=== PATIENT | female | born 1965 | race Two or more races ===

== ENCOUNTER → 2022-11-30 | Outpatient (CLI) | payer MEDICAID ==
[~2022-11-30] MED LIST: ALBUTEROL SULF 2.5 MG/0.5ML(0.5%) NEB SOLN ONE
== END | disposition home or self-care (01) ==
LOC: RT 08:45
PROVIDERS: ATTEND Internal Medicine Pulmonary Disease
DX: R06.02 Shortness of breath (principal); R06.09 Other forms of dyspnea
CPT/HCPCS: 94060; 94727; 94729

== ENCOUNTER → 2023-04-28 | Day surgery (SDC) | payer MEDICAID ==
[2023-04-25 12:39] LABS: Basophils # (auto) 0 10 ^3/uL (0-0.2); Basophils % (auto) 0.5 % (0.0-2.0); Eosinophils # (auto) 0 10 ^3/uL (0-0.8); Eosinophils % (auto) 0.3 % (0.0-7.0); Hematocrit 41.2 % (36.0-46.0); Hemoglobin 14.1 g/dL (12.2-16.2); Lymphocytes # (auto) 2.2 10 ^3/uL (0.4-5.4); Lymphocytes % (auto) 32.4 % (10.0-50.0); Mean Corpuscular Hemoglobin 30.6 pg (28.0-32.0); Mean Corpuscular Hgb Conc. 34.3 g/dL (32.0-36.0); Mean Corpuscular Volume 89.3 fL (80.0-100.0); Monocytes # (auto) 0.5 10 ^3/uL (0-1.3); Monocytes % (auto) 7.9 % (0.0-12.0); Neutrophils % (auto) 58.9 % (37.0-80.0); Nucleated Red Blood Cells % 0.1 %; Red Blood Cells 4.61 10^6/uL (4.0-5.20); Red Cell Distribution Width 14.2 % (11.8-14.3); White Blood Cell 6.7 10^3/uL (4.4-10.8)
[2023-04-25 12:58] LABS: Partial Thromboplastin Time 27.5 SEC (24.5-34.5); Prothrombin Time 10.5 sec (9.3-11.8)
[2023-04-25 13:19] LABS: Alanine Aminotransferase 17 U/L (7-40); Albumin 4.3 g/dL (3.2-4.8); Alkaline Phosphatase 61 U/L (46-116); Anion Gap 6 (5-15); Aspartate Aminotransferase 15 U/L (13-40); BUN/Creatinine Ratio 10.8 (10.0-20.0); Bilirubin, Total 1.2 mg/dL (0.2-1.0); Blood Urea Nitrogen 10 mg/dL (9-23); Calcium 9.9 mg/dL (8.5-10.1); Carbon Dioxide 30 mmol/L (20-30); Chloride 102 mmol/L (98-107); Glucose 85 mg/dL (74-106); Potassium 3.7 mmol/L (3.5-5.1); Sodium 138 mmol/L (136-145)
[2023-04-25 13:23] LABS: Urine Bacteria FEW /hpf (None Seen); Urine Blood Negative /uL (Negative); Urine Clarity Clear (Clear); Urine Color Colorless (Yellow); Urine Protein, UAD Negative (Negative); Urine Specific Gravity 1.006 (1.001-1.035); Urine Urobilinogen Normal (Negative); Urine WBC <1 /hpf (0 - 5); Urine pH 7.5 (5.0-8.0)
[~2023-04-28] VITALS: Ht 162.6 cm; Wt 144.2 kg
[~2023-04-28] MED LIST changes: +ALBUAER3 IN; -ALBUTEROL SULF 2.5 MG/0.5ML(0.5%) NEB SOLN ONE; +BUSP15TA60 PO; +CHLO25TA2 PO; +FLUT1AER17 IN; +LIDOCAINE 2% (LOCAL ANESTH.) PF 5ml SDV ONE; +LORA-622 PO; +LOSA50TA46 PO; +PROPOFOL 10 MG/ML 20 ML IV ONE; +SODIUM CHLORIDE LOCK 10 ML ONE; +ePHEDrine SULFATE 50 MG/ML AMP ONE
[2023-04-28 13:08] VITALS: TEMP 98.7
[2023-04-28 14:38] VITALS: O2SAT 98
[2023-04-28 15:08] VITALS: BP 119/64; PULSE 85; RESP 21; O2SAT 96
== END | disposition home or self-care (01) ==
LOC: GI 12:19
PROVIDERS: ATTEND Internal Medicine Gastroenterology
DX: K59.00 Constipation, unspecified (principal); K57.30 Diverticulosis of large intestine without perforation or abscess without bleeding; K64.8 Other hemorrhoids; K62.1 Rectal polyp; K92.1 Melena; K63.5 Polyp of colon
CPT/HCPCS: 36415; 45385; 80053; 81001; 85025; 85610; 85730; 88305; J2001; J2704; J7030

== ENCOUNTER → 2023-05-30 | Outpatient (CLI) | payer MEDICAID ==
[~2023-05-30] MED LIST changes: -LIDOCAINE 2% (LOCAL ANESTH.) PF 5ml SDV ONE; -PROPOFOL 10 MG/ML 20 ML IV ONE; -SODIUM CHLORIDE LOCK 10 ML ONE; -ePHEDrine SULFATE 50 MG/ML AMP ONE
[2023-05-30 11:05] LABS: Alanine Aminotransferase 22 U/L (7-40); Albumin 4.3 g/dL (3.2-4.8); Alkaline Phosphatase 74 U/L (46-116); Anion Gap 6 (5-15); Aspartate Aminotransferase 17 U/L (13-40); BUN/Creatinine Ratio 12.5 (10.0-20.0); Bilirubin, Total 1.5 mg/dL (0.2-1.0); Blood Urea Nitrogen 12 mg/dL (9-23); Calcium 9.6 mg/dL (8.5-10.1); Carbon Dioxide 28 mmol/L (20-30); Chloride 105 mmol/L (98-107); Glucose 94 mg/dL (74-106); Potassium 4.3 mmol/L (3.5-5.1); Sodium 139 mmol/L (136-145); Total Protein 6.9 g/dL (5.7-8.2)
[2023-05-30 12:07] LABS: INR 0.97 (0.9-1.15); Prothrombin Time 10.4 sec (9.3-11.8)
== END | disposition home or self-care (01) ==
LOC: LAB 10:09
PROVIDERS: ATTEND Internal Medicine Gastroenterology
DX: R94.5 Abnormal results of liver function studies (principal)
CPT/HCPCS: 36415; 80053; 82728; 85610; 86038; 86803; 87340

== ENCOUNTER 2024-04-30 10:40 | Emergency (ER) | payer OTHER, MEDICAID ==
[~2024-04-30] VITALS: Ht 162.6 cm; Wt 157.0 kg
[~2024-04-30 10:40] MED LIST changes: +LOSA-534 PO; -LOSA50TA46 PO
[2024-04-30] MEDS ORDERED: DexAMETHasone SOD PHOS 10MG/1ML VIAL INJ IM ONE (11:15)
[2024-04-30] MEDS ORDERED: CYCL-839 PO (11:23)
--- NOTE | 2024-04-30 11:27 | ED.PDOC ---
Musculoskeletal HPI Comments 58-year-old female patient presents to the clinic for pain to the left upper leg that starts at the knee and radiates upwards. Patient reports that the pain is anterior and posterior. Patient denies any recent trauma or fall. Patient reports that she usually has this pain on the right leg and will go to urgent care for treatment. Patient is unsure what treatment she usually receives. Patient has received corticosteroid injections to the right knee previously which did help with only knee pain. Patient has an appointment upcoming with her PCP this week. Chief Complaint: Lower Extremity Time Seen by MD: 10:46 Primary Care Provider: wale Reviewed Notes: Nurses Notes, Medications Allergies: Coded Allergies: Penicillins (Unverified Allergy, Severe, anaphylaxis, 04/25/23) Sulfa Antibiotics (Unverified Adverse Reaction, Mild, anxiety, 04/25/23) Home Meds Active Scripts Prednisone (Prednisone) 20 Mg Tab, 60 MG PO DAILY for 5 Days, #15 TAB 0 Refills Prov:[facility] 04/30/24 Ibuprofen (Ibuprofen) 600 Mg Tab, 1 TAB PO TID PRN for 30 Days, #90 TAB Prov:[facility] 04/30/24 Cyclobenzaprine Hcl (Cyclobenzaprine Hcl) 10 Mg Tab, 10 MG PO BID PRN for 21 Days, #42 TAB 0 Refills Prov:[facility] 04/30/24 Reported Medications Lsrsroqtfgj-Rycebqtmnvfk-Ntevx (Trelegy Ellipta 200-62.5-25 Mcg/INH) 1 Aer Aer, 1 AER IN DAILY, AER 04/25/23 Chlorthalidone (Chlorthalidone) 25 Mg Tab, 25 MG PO DAILY, TAB 04/25/23 Loratadine (Claritin) 10 Mg Tab, 10 MG PO DAILY, TAB 04/25/23 Albuterol Sulfate (VENTOLIN MDI) 90 Mcg Ih, 90 MCG IN PRN, INH 04/25/23 Buspirone Hcl (Buspirone Hcl) 15 Mg Tab, 15 MG PO TID, TAB 04/25/23 Losartan Potassium (Losartan Potassium) 50 Mg Tab, 50 MG PO DAILY, TAB 04/25/23 Mode of Arrival: Ambulatory Family History Family History: Reviewed,noncontributory to illness Constitutional: denies: chills, diaphoresis, fatigue, fever, malaise, sweats, weakness, others EENTM: denies: blurred vision, double vision, ear bleeding, ear discharge, ear drainage, ear pain, ear ringing, eye pain, eye redness, hearing loss, mouth pain, mouth swelling, nasal discharge, nose bleeding, nose congestion, nose pain, photophobia, tearing, throat pain, throat swelling, voice changes, others Respiratory: denies: cough, hemoptysis, orthopnea, SOB at rest, shortness of breath, SOB with excertion, stridor, wheezing, others Cardiovascular: denies: chest pain, dizzy spells, diaphoresis, Dyspnea on exertion, edema, irregular heart beat, left arm pain, lightheadedness, palpitations, PND, syncope, others Gastrointestinal: denies: abdomen distended, abdominal pain, blood streaked bowels, constipated, diarrhea, dysphagia, difficulty swallowing, hematemesis, melena, nausea, poor appetite, poor fluid intake, rectal bleeding, rectal pain, vomiting, others Genitourinary: denies: abnormal vagina bleeding, burning, dyspareunia, dysuria, flank pain, frequency, hematuria, incontinence, pain, , vagina discharge, urgency, others Neurological: denies: dizziness, fainting, headache, left sided numbness, left sided weakness, numbness, paresthesia, pre-existing deficit, right sided numb ness, right sided weakness, seizure, speech problems, tingling, tremors, weakness, others Musculoskeletal: reports: others (Patient has tenderness to the left thigh on the anterior and posterior portion. Patient has mild pain a on the anterior portion.) Integumetry: denies: bruises, change in color, change in hair/nails, dryness, laceration, lesions, lumps, rash, wounds, others Allergic/Immunocompromised: denies: Difficulty Healing, Frequent Infections, Hives, Itching, others Hematologic/Lymphatic: denies: anemia, blood clots, easy bleeding, easy bruising, swollen glands, others Endocrine: denies: excessive hunger, excessive sweating, excessive thirst, excessive urination, flushing, intolerance to cold, intolerance to heat, unexplained weight gain, unexplained weight loss, others Psychiatric: denies: anxiety, bipolar disorder, depression, hopeless, panic dis order, schizophrenia, sleepless, suicidal, others All Other Systems: Reviewed and Negative Physical Exam General Appearance: No Apparent Distress, Normal HEENT: Normal ENT Inspection, Pharynx Normal, TMs Normal Neck: Full Range of Motion, Non-Tender, Normal, Normal Inspection Respiratory: Chest Non-Tender, Lungs Clear, No Accessory Muscle Use, No Respiratory Distress, Normal Breath Sounds Cardiovascular: No Edema, No JVD, No Murmur, No Gallop, Normal Peripheral Pulses, Regular Rate/Rhythm Breast Exam: Deferred Gastrointestinal: No Organomegaly, Non Tender, No Pulsatile Mass, Normal Bowel Sounds, Soft Genitalia: Deferred Pelvic: Deferred Rectal: Deferred Extremities: No calf tenderness, Normal capillary refill, Normal inspection, Normal range of motion, Non-tender, No pedal edema, Tender (Tenderness to the anterior and posterior portion of the left thigh. No swelling or inflammation noted. No ecchymosis. Patient has full range of motion and is ambulatory) Musculoskeletal : Apperance: Normal Neurologic: Alert, emerging solutions executive II-XII nml as Tested, No Motor Deficits, Normal Affect, Normal Mood, No Sensory Deficits Cerebellar Function: Normal Reflexes: Normal Skin: Dry, Normal Color, Warm Lymphatic: No Adenopathy Was a procedure done? Was a procedure done?: No Differential Diagnosis EXT Differential Diagnosis: Contusion, Strain, Arthritis, Other (Sciatica) X-Ray, Labs, Meds, VS Vital Signs Date Time Temp Pulse Resp B/P (MAP) Pulse Ox O2 Delivery O2 Flow Rate FiO2 04/30/24 14:00 98.3 78 15 152/85 (107) 95 98.3 04/30/24 12:52 98.2 72 18 147/89 (108) 97 98.2 04/30/24 12:49 18 97 Room Air* 0 21 04/30/24 11:09 98.0 96 17 180/80 (113) 96 Current Medications Medications (Trade) Dose Ordered Sig/Donnie Route Start Time Stop Time Status Last Admin Ketorolac Tromethamine (Toradol Injection) 60 mg ONCE ONCE IM 04/30/24 11:15 04/30/24 11:28 DC 04/30/24 12:50 Methylprednisolone Acetate (DEPO-Medrol) 80 mg ONCE ONCE IM 04/30/24 11:30 04/30/24 11:31 DC 04/30/24 12:50 X-Ray, Labs, Meds, VS Comment 58-year-old female patient presents to the emergency room for nontraumatic pain to the left thigh pain patient medicated with Toradol and steroids in the emergency rooms with improvement of pain. Patient to take steroids and ibuprofen at home for pain. Patient to take muscle relaxers as needed. Patient to 5 with primary care physician with already scheduled appointment. Patient to return to ER if she has worsening pain. On re-evaluation patient has symptomatic improvement. Patient is stable for discharge at this time. All test results and diagnostic imaging have been interpreted. All diagnostic findings, discharge care, and education instruction provided to the patient. Follow-up with PCP in 2-3 days Patient verbalized understanding, discharge instructions and agrees to treatment plan Vital signs are stable Patient is ambulatory Patient advised of which symptoms necessitate a return visit to the emergency r oom. Patient to return emergency room for any new worsening symptoms. Patient is aware that the purpose of this visit is for an acute medical emergency requiring emergent stabilization. Chronic conditions, including malignancies have not been ruled out. Patient is instructed to follow up with PCP as directed for continued care and workup. If unable to arrange follow up, patient is to return to the emergency room for reassessment. Patient was given verbal and written discharge instructions and acknowledges understanding Time of 1ST Reevaluation: 11:19 Reevaluation 1ST: Unchanged Patient Education/Counseling: Diagnosis, Treatment, Prognosis Family Education/Counseling: No Family Present Departure 1 Departure Time of Disposition: 12:52 Impression: Primary Impression: Sciatica of left side Additional Impression: Knee pain, left Qualified Codes: M25.562 - Pain in left knee; G89.29 - Other chronic pain Disposition: 01 HOME / SELF CARE / HOMELESS Condition: Stable e-Prescriptions Prednisone (Prednisone) 20 Mg Tab 60 MG PO DAILY for 5 Days, #15 TAB 0 Refills Prov: BARBEMYRAE FORECLOSURE CLERK 04/30/24 Ibuprofen (Ibuprofen) 600 Mg Tab 1 TAB PO TID PRN for 30 Days, #90 TAB Prov: BARBEMYRAE FORECLOSURE CLERK 04/30/24 Cyclobenzaprine Hcl (Cyclobenzaprine Hcl) 10 Mg Tab 10 MG PO BID PRN for 21 Days, #42 TAB 0 Refills Prov: BARBEMYRAE FORECLOSURE CLERK 04/30/24 Critical Care Note Critical Care Time?: No Stability Stability form required: No Heart Score Heart Score: Heart Score Response (Comments) Value History N/A 0 EKG N/A 0 Age N/A 0 Risk Factors N/A 0 Troponin N/A 0 Total 0 [facility] Apr 30, 2024 11:26
[2024-04-30 12:49] VITALS: RESP 18; O2SAT 97
[2024-04-30] MEDS: methylPREDNISolone ACETATE 80 MG/ML VL IM ONE (12:50)
[2024-04-30] MEDS: KETOROLAC TROMETH 60MG/2ML VIAL IM ONE (12:50)
[2024-04-30] MEDS ORDERED: IBUP-1454 PO (12:54)
[2024-04-30] MEDS ORDERED: PRED20TA2 PO (12:54)
[2024-04-30 14:00] VITALS: BP 152/85; PULSE 78; RESP 15; TEMP 98.3; O2SAT 95
== END 2024-04-30 14:02 | disposition home or self-care (01) ==
LOC: ER 10:40
DX: M54.32 Sciatica, left side (principal); M79.652 Pain in left thigh; M25.561 Pain in right knee; Z79.899 Other long term (current) drug therapy; Z88.0 Allergy status to penicillin; Z88.2 Allergy status to sulfonamides
CPT/HCPCS: 96372; 99284; J1010; J1885

== ENCOUNTER → 2024-09-18 | Outpatient (CLI) | payer OTHER, MEDICAID ==
[~2024-09-18] MED LIST changes: +CYCL-839 PO; +IBUP-1454 PO; +PRED20TA2 PO
[2024-09-18 08:51] LABS: Urine Bacteria None Seen /hpf (None Seen)
[2024-09-18 08:55] LABS: Basophils # (auto) 0 10 ^3/uL (0-0.2); Basophils % (auto) 1.1 % (0.0-2.0); Eosinophils # (auto) 0 10 ^3/uL (0-0.8); Eosinophils % (auto) 0.6 % (0.0-7.0); Hematocrit 40.4 % (36.0-46.0); Hemoglobin 14.1 g/dL (12.2-16.2); Lymphocytes # (auto) 1.5 10 ^3/uL (0.4-5.4); Lymphocytes % (auto) 38.8 % (10.0-50.0); Mean Corpuscular Hgb Conc. 34.9 g/dL (32.0-36.0); Mean Corpuscular Volume 88.9 fL (80.0-100.0); Monocytes # (auto) 0.3 10 ^3/uL (0-1.3); Monocytes % (auto) 7.8 % (0.0-12.0); Neutrophils % (auto) 51.7 % (37.0-80.0); Nucleated Red Blood Cells % 0.2 %; Platelet Count (auto) 293 10^3/uL (140-450); Red Blood Cells 4.54 10^6/uL (4.0-5.20); Red Cell Distribution Width 13.4 % (11.8-14.3); White Blood Cell 3.9 10^3/uL (4.4-10.8)
[2024-09-18 09:03] LABS: Urine Blood Negative /uL (Negative); Urine Clarity Turbid (Clear); Urine Color Light-Yellow (Yellow); Urine Protein, UAD Negative (Negative); Urine Specific Gravity 1.018 (1.001-1.035); Urine Squamous Epithelial Cell MOD /hpf (<5); Urine Urobilinogen Normal (Negative); Urine WBC 1 /HPF (0-5); Urine pH 6.5 (5.0-9.0)
[2024-09-18 09:46] LABS: Alanine Aminotransferase 32 U/L (7-40); Albumin 4.5 g/dL (3.2-4.8); Alkaline Phosphatase 71 U/L (46-116); Anion Gap 7 (5-15); Aspartate Aminotransferase 23 U/L (13-40); BUN/Creatinine Ratio 20.8 (10.0-20.0); Blood Urea Nitrogen 20 mg/dL (9-23); Calcium 10.2 mg/dL (8.7-10.4); Carbon Dioxide 28 mmol/L (20-31); Chloride 105 mmol/L (98-107); Glucose 102 mg/dL (74-106); LDL Cholesterol 86 mg/dL (< 100); Sodium 140 mmol/L (136-145); Total Protein 6.9 g/dL (5.7-8.2); Triglycerides 116 mg/dL (< 150)
[2024-09-18 09:47] LABS: Bilirubin, Total 1.2 mg/dL (0.2-1.0); Cholesterol 165 mg/dL (< 200); HDL Cholesterol 56 mg/dL (40-59)
== END | disposition home or self-care (01) ==
LOC: LAB 08:30
PROVIDERS: ATTEND Nurse Practitioner
DX: I10 Essential (primary) hypertension (principal); E78.5 Hyperlipidemia, unspecified; Z79.899 Other long term (current) drug therapy
CPT/HCPCS: 36415; 80053; 80061; 81001; 83036; 84443; 85025

== ENCOUNTER 2024-10-30 07:46 | Day surgery (SDC) | payer OTHER, MEDICAID ==
[2024-10-28 09:08] LABS: Urine Bacteria None Seen /hpf (None Seen)
[2024-10-28 09:44] LABS: Basophils # (auto) 0 10 ^3/uL (0-0.2); Basophils % (auto) 0.4 % (0.0-2.0); Eosinophils # (auto) 0 10 ^3/uL (0-0.8); Eosinophils % (auto) 0.4 % (0.0-7.0); Hematocrit 41.9 % (36.0-46.0); Hemoglobin 14.6 g/dL (12.2-16.2); Lymphocytes % (auto) 36.3 % (10.0-50.0); Mean Corpuscular Hemoglobin 30.4 pg (28.0-32.0); Mean Corpuscular Hgb Conc. 34.7 g/dL (32.0-36.0); Mean Corpuscular Volume 87.5 fL (80.0-100.0); Monocytes # (auto) 0.5 10 ^3/uL (0-1.3); Monocytes % (auto) 8.6 % (0.0-12.0); Neutrophils % (auto) 54.3 % (37.0-80.0); Nucleated Red Blood Cells % 0.2 %; Platelet Count (auto) 310 10^3/uL (140-450); Red Blood Cells 4.79 10^6/uL (4.0-5.20); Red Cell Distribution Width 13.8 % (11.8-14.3); White Blood Cell 5.5 10^3/uL (4.4-10.8)
[2024-10-28 09:46] LABS: Urine Blood Negative /uL (Negative); Urine Clarity Clear (Clear); Urine Color Light-Yellow (Yellow); Urine Protein, UAD Negative (Negative); Urine Specific Gravity 1.013 (1.001-1.035); Urine Squamous Epithelial Cell FEW /hpf (<5); Urine Urobilinogen Normal (Negative); Urine WBC 1 /HPF (0-5); Urine pH 5.5 (5.0-9.0)
[2024-10-28 09:50] LABS: Partial Thromboplastin Time 26.5 SEC (24.5-34.5); Prothrombin Time 10.6 sec (9.3-11.8)
[2024-10-28 10:00] LABS: Alanine Aminotransferase 24 U/L (7-40); Albumin 4.7 g/dL (3.2-4.8); Alkaline Phosphatase 77 U/L (46-116); Anion Gap 9 (5-15); Aspartate Aminotransferase 18 U/L (13-40); BUN/Creatinine Ratio 19.8 (10.0-20.0); Bilirubin, Total 1.1 mg/dL (0.2-1.0); Blood Urea Nitrogen 19 mg/dL (9-23); Carbon Dioxide 26 mmol/L (20-31); Glucose 86 mg/dL (74-106); Sodium 143 mmol/L (136-145); Total Protein 7.3 g/dL (5.7-8.2)
[2024-10-28 10:06] LABS: Calcium 10.6 mg/dL (8.7-10.4); Chloride 108 mmol/L (98-107)
[~2024-10-30] VITALS: Ht 162.6 cm; Wt 157.4 kg
[~2024-10-30 07:46] MED LIST changes: -CHLO25TA2 PO; +HYDR25TA5 PO; +HYDR50TA69 PO; +MULT-1018 OR; +PANT40TA2 PO; +TURMPOW XX
[2024-10-30] MEDS ORDERED: CELECOXIB 100 MG CAP ONE (10:27)
[2024-10-30] MEDS ORDERED: GABAPENTIN 300 MG CAP ONE (10:27)
[2024-10-30] MEDS ORDERED: DexAMETHasone SOD PHOS 10MG/1ML VIAL INJ ONE (10:28)
[2024-10-30] MEDS ORDERED: PROPOFOL 10 MG/ML 20 ML IV ONE ×3 (10:28→11:15)
[2024-10-30] MEDS ORDERED: LIDOCAINE 2% (LOCAL ANESTH.) PF 5ml SDV ONE (10:28)
[2024-10-30] MEDS ORDERED: ONDANSETRON HCL 4 MG/2 ML VIAL ONE (10:28)
[2024-10-30] MEDS ORDERED: GLYCOPYRROLATE 0.2 MG/ML 1ML VIAL ONE (10:28)
[2024-10-30] MEDS ORDERED: KETOROLAC TROMETH 30 MG/ML 1ML VIAL ONE (10:28)
[2024-10-30] MEDS ORDERED: LIDOCAINE HCL 2% TOP JELLY 5ML TOP ONE (10:29)
[2024-10-30] MEDS ORDERED: KETAMINE 50mg/ML 1ml syringe ONE (10:29)
[2024-10-30] MEDS ORDERED: fentaNYL CITRATE 100 MCG/2 ML VL ONE ×2 (10:29→12:26)
[2024-10-30] MEDS: ACETAMINOPHEN IV 1000 MG/100ML (10MG/ML) IV ONE (10:32)
[2024-10-30] MEDS: GABAPENTIN 300 MG CAP PO ONE (10:32)
[2024-10-30] MEDS: CELECOXIB 100 MG CAP PO ONE (10:32)
[2024-10-30] MEDS: levoFLOXacin 500MG 100 ML IV ONE (10:35)
[2024-10-30] MEDS: BUPIVACAINE 0.5% P/F INJ 10 ML VIAL ONE (11:12)
[2024-10-30] MEDS: LIDOCAINE W/ EPINEPHRINE 1% 20ML VIAL ONE (11:12)
[2024-10-30] MEDS: ACETAMINOPHEN IV 100 ML IV ONE (11:12)
[2024-10-30 13:08] VITALS: PULSE 90; RESP 20; TEMP 98.2; O2SAT 96
--- NOTE | 2024-10-30 13:08 | DVH ---
US OF THE left BREAST INDICATION: Evaluate BHARAT type disk quality control supervisor clip TECHNIQUE: Targeted left breast ultrasound was performed COMPARISON: Prior exam dated: 10/11/2023. FINDINGS/IMPRESSION: BHARAT type disk quality control supervisor clip is visualized in the left breast at approximately [address] Millan present at [facility] of exam for scanning.
[2024-10-30] MEDS ORDERED: ONDANSETRON HCL 4 MG/2 ML VIAL IV PRN (13:15)
[2024-10-30] MEDS ORDERED: hydrALAZINE HCL 20 MG/ML VL IV PRN (13:15)
[2024-10-30] MEDS ORDERED: FLUMAZENIL 0.1 MG/ML INJ 10ML MDV IV PRN (13:15)
[2024-10-30] MEDS ORDERED: ePHEDrine SULFATE 50 MG/ML AMP IV PRN (13:15)
[2024-10-30] MEDS ORDERED: NALOXONE HCL 0.4 MG/ML VIAL IV PRN (13:15)
[2024-10-30] MEDS ORDERED: fentaNYL CITRATE 100 MCG/2 ML VL IV PRN (13:15)
[2024-10-30] MEDS: HYDROmorphone HCL 2 MG/ML VL/or syr IV PRN (13:42)
--- NOTE | 2024-10-30 13:45 | DVHOP ---
DATE OF SURGERY: 10/30/2024 PREOPERATIVE DIAGNOSES: Biopsy-proven left breast lesion, atypical hyperplasia. POSTOPERATIVE DIAGNOSES: Biopsy-proven left breast lesion, atypical hyperplasia. SURGEON: Brian Whitfield MD REGISTERED MEDICAL ASSISTANT: Darren Arnold NP INTRAOPERATIVE CONSULTATION: Dr. Millan, Radiology. ANESTHESIOLOGIST: Magdiel Abraham. DESCRIPTION OF PROCEDURE: The patient was brought to the operating room after having had a BHARAT detector placed in a lesion of the left breast in Radiology prior to today. The patient was anesthetized and her chest wall and breast were prepped and draped. The BHARAT probe ultrasound failed to visualize and detect the detector in the indicated area. Numerous attempts were made including having an incision made from the nipple-areolar complex towards the biopsy insertion site in order to facilitate the contact of the BHARAT probe with the detector; however, we were unable to localize the clip by x-ray, ultrasound or BHARAT probing. Therefore, we requested Dr. Millan from Radiology to come into the operating room who with a great deal of difficulty was able to localize the clip, which was completely opposite the site previously indicated by the radiologist and indicated on her x-rays. The clip was indicated to be in the left upper quadrant of the breast. The actual excision of the clip was from the left lower quadrant of the breast approximately 10 cm deep to the nipple and approximately 2 cm superior to the chest wall. The lesion was excised and the placement was confirmed by the BHARAT probe and the specimen submitted for radiologic confirmation, which was reviewed. The specimen excised and it contains the BHARAT clip as well as previously placed biopsy marker. The wound was profusely irrigated and hemostasis was accomplished due to the depth of the dissection from the obesity of the patient. A size 10 mm Orlando-Isidro drain was placed into the depth of the excision of the left breast, exteriorized through separate incision and secured with a 2-0 nylon suture. Subsequently, the wound was approximated using Monocryl sutures, Dermabond glue, and Steri-Strips. The patient remained stable throughout the procedure and left the operating room following an accurate needle and sponge counts. No family members were present in the waiting room. Brian Whitfield MD PF/MEGHAN TID: [id number] RECEIPT: [id number]
[2024-10-30 14:10] VITALS: PULSE 78; RESP 16; O2SAT 94
[2024-10-30 14:23] VITALS: BP 128/80; PULSE 78; RESP 16; O2SAT 94
--- NOTE | 2024-10-30 14:23 | DVH ---
Specimen radiograph left breast INDICATION: BREAST TECHNIQUE: Specimen radiograph of the left breast was obtained FINDINGS/IMPRESSION: Postop radiograph demonstrates the BHARAT biomedical engineering director along with the biopsy marker clip contained within the specimen.
--- NOTE | 2024-10-30 21:27 | DVH ---
C-ARM FLUOROSCOPY: PROCEDURE: Excision of left breast mass, location of biopsy marker FLUOROSCOPY TIME: 11 seconds DAP: 1.77 mgy FINDINGS: Spot intraoperative C arm radiographs demonstrating a surgical clip projecting over the left breast. IMPRESSION: Please refer to surgical report for detailed findings.
== END 2024-10-30 14:50 | disposition home or self-care (01) ==
LOC: SUR 07:46
PROVIDERS: ATTEND Surgery
DX: N60.92 Unspecified benign mammary dysplasia of left breast (principal); C50.312 Malignant neoplasm of lower-inner quadrant of left female breast; I10 Essential (primary) hypertension; J45.909 Unspecified asthma, uncomplicated; G47.33 Obstructive sleep apnea (adult) (pediatric); F41.9 Anxiety disorder, unspecified; E66.01 Morbid (severe) obesity due to excess calories; Z17.0 Estrogen receptor positive status [ER+]; Z17.21 Progesterone receptor positive status; Z17.32 Human epidermal growth factor receptor 2 negative status; Z68.43 Body mass index [BMI] 50.0-59.9, adult; Z79.899 Other long term (current) drug therapy; Z85.828 Personal history of other malignant neoplasm of skin; Z98.890 Other specified postprocedural states; Z88.0 Allergy status to penicillin; Z88.2 Allergy status to sulfonamides
CPT/HCPCS: 19125; 36415; 71045; 76098; 76642; 80053; 81001; 85025; 85610; 85730; J1100; J1171; J1885; J1956; J2003; J2405; J2704; J3010; J3490; 76000; J0131

== ENCOUNTER 2024-12-09 06:37 | Inpatient (IN) | payer OTHER, MEDICAID ==
[2024-12-05 09:29] LABS: Hemoglobin 14.5 g/dL (12.2-16.2)
[2024-12-05 09:39] LABS: Hematocrit 41.4 % (36.0-46.0); Mean Corpuscular Hemoglobin 30.8 pg (28.0-32.0); Mean Corpuscular Volume 88.2 fL (80.0-100.0); Nucleated Red Blood Cells % 0.2 %
[2024-12-05 09:44] LABS: Urine Protein, UAD Negative (Negative)
[2024-12-05 09:54] LABS: INR 1.16 (0.9-1.15); Partial Thromboplastin Time 30.8 SEC (24.5-34.5); Prothrombin Time 12.1 sec (9.3-11.8)
[2024-12-05 10:04] LABS: Alanine Aminotransferase 20 U/L (7-40); Albumin 4.5 g/dL (3.2-4.8); Alkaline Phosphatase 79 U/L (46-116); Anion Gap 8 (5-15); BUN/Creatinine Ratio 12.5 (10.0-20.0); Blood Urea Nitrogen 12 mg/dL (9-23); Calcium 10.2 mg/dL (8.7-10.4); Carbon Dioxide 28 mmol/L (20-31); Chloride 106 mmol/L (98-107); Glucose 97 mg/dL (74-106); Potassium 3.7 mmol/L (3.5-5.1); Sodium 142 mmol/L (136-145); Total Protein 6.8 g/dL (5.7-8.2)
[2024-12-05 10:05] LABS: Bilirubin, Total 1.1 mg/dL (0.2-1.0)
[~2024-12-09] VITALS: Ht 162.6 cm; Wt 165.2 kg
[~2024-12-09 06:37] MED LIST changes: -IBUP-1454 PO; -LORA-622 PO; -MULT-1018 OR; -PRED20TA2 PO; -TURMPOW XX
[2024-12-09] MEDS ORDERED: HYDROmorphone HCL 2 MG/ML VL/or syr ONE (11:43)
[2024-12-09] MEDS ORDERED: fentaNYL CITRATE 100 MCG/2 ML VL ONE (11:43)
[2024-12-09] MEDS ORDERED: MIDAZOLAM HCL 2MG/2ML 2ml VIAL (1mg/ml) ONE (11:44)
[2024-12-09] MEDS ORDERED: ETOMIDATE (2MG/ML) 20ML VIAL IV ONE (11:44)
[2024-12-09] MEDS ORDERED: PROPOFOL 10 MG/ML 20 ML IV ONE (11:44)
[2024-12-09] MEDS: D5W/SOD CHL 0.45%/KCL 20MEQ 1,000 ML IV SCH (13:00)
--- NOTE | 2024-12-09 13:15 | DVHOP ---
DATE OF SURGERY: 12/09/2024 PREOPERATIVE DIAGNOSIS: Left breast cancer. POSTOPERATIVE DIAGNOSIS: Left breast cancer. SURGEON: Brian Whitfield MD LOAD BUILDER: Darren Arnold NP ANESTHESIA: General endotracheal anesthesia. ANESTHESIOLOGIST: Dr. Guzmán. PROCEDURES: Partial mastectomy, left breast with sentinel lymph node biopsy, left axilla. DESCRIPTION OF PROCEDURE: Under general anesthesia with the patient's skin prepped and draped, the palpable mass within the left breast was isolated. Incision was made over the mass and the breast tissues surrounding the mass were circumferentially dissected from the remaining breast tissue. The specimen was then marked with a long suture at 6 o'clock and a short suture at 3 o'clock on the specimen. The wound was irrigated and hemostasis was accomplished and the wound was packed with laparotomy sponge to complete hemostasis, following which a separate set of instruments and a separate set of gloves was utilized. An axilla incision was made and the tissues divided down on to the lateral edge of the pectoral muscle with a probe using the signal from the isotope tissue. A large lymph node was isolated and dissected. Hemostasis was accomplished using metallic hemoclips and the mass was excised from its place as a sentinel lymph node, which apparently appears to be several lymph nodes matted together. This was submitted for histopathologic permanent sections. Both wounds were irrigated. Irrigant was aspirated. The Orlando-Isidro drain was placed and exteriorized separately and the tissues were then approximated using Monocryl sutures, Dermabond glue and Steri-Strips. The patient remained stable throughout the procedure, left the operating room following an accurate needle and sponge count. The patient's roommate, Celeste, did not answer a phone call to [phone]. Brian Whitfield MD PF/VICKIE TID: [id number] RECEIPT: [id number]
[2024-12-09] MEDS: BUPIVACAINE HCL 0.25% P/F 10 ML VIAL ONE (13:16)
[2024-12-09] MEDS: LIDOCAINE W/ EPINEPHRINE 1% 20ML VIAL ONE (13:16)
[2024-12-09 13:25] VITALS: PULSE 92; RESP 21; O2SAT 96
[2024-12-09] MEDS ORDERED: ACETAMINOPHEN IV 1000 MG/100ML (10MG/ML) IV PRN (13:30)
[2024-12-09] MEDS: ACETAMINOPHEN IV 100 ML IV ONE (13:34)
[2024-12-09] MEDS: HYDROmorphone HCL 2 MG/ML VL/or syr IV PRN (13:36)
--- NOTE | 2024-12-09 14:07 | DVHHP2 ---
Review of Systems Allergies: Coded Allergies: Penicillins (Unverified Allergy, Severe, anaphylaxis, 04/25/23) Ciprofloxacin (Unverified Adverse Reaction, Intermediate, anxiety, 12/05/24) Sulfa Antibiotics (Unverified Adverse Reaction, Mild, anxiety, 04/25/23) Medications Current Medications Medications Dose Ordered Sig/Donnie Route Start Time Stop Time Status Last Admin Dose Admin Potassium Chloride/Dextrose/ Sod Cl 1,000 ml @ 100 mls/hr Q10H IV 12/09/24 13:00 12/09/24 13:00 100 MLS/HR Levofloxacin/ Dextrose 100 ml @ 100 mls/hr DAILY IV 12/10/24 10:00 Hydromorphone HCl 1 mg Q3HPRN PRN IV 12/09/24 13:00 12/09/24 13:36 1 MG Acetaminophen/ Codeine Phosphate 1 tab Q4HP PRN PO 12/09/24 13:00 Nitroglycerin 0.4 mg Q5MINP PRN SL 12/09/24 14:15 UNV Morphine Sulfate 2 mg Q30M PRN IV 12/09/24 14:15 UNV Acetaminophen 650 mg Q6HP PRN PO 12/09/24 14:15 UNV Ondansetron HCl 4 mg Q6HPRN PRN IV 12/09/24 14:15 UNV Buspirone HCl 15 mg Q12HR PO 12/09/24 22:00 UNV Pantoprazole Sodium 40 mg DAILY@0600 PO 12/10/24 06:00 UNV Losartan Potassium 50 mg DAILY PO 12/10/24 10:00 UNV Hydralazine HCl 10 mg Q6HP PRN IV 12/09/24 14:15 UNV Exam Vital Signs Vital Signs Date Time Temp Pulse Resp B/P (MAP) Pulse Ox O2 Delivery O2 Flow Rate FiO2 12/09/24 13:36 87 15 167/66 12/09/24 10:37 97.4 93 97.4 Labs/Xrays Labs Test 12/05/24 09:05 Range/Units White Blood Count 5.4 4.4-10.8 10^3/uL Red Blood Count 4.69 4.0-5.20 10^6/uL Hemoglobin 14.5 12.2-16.2 g/dL Hematocrit 41.4 36.0-46.0 % Mean Corpuscular Volume 88.2 80.0-100.0 fL Mean Corpuscular Hemoglobin 30.8 28.0-32.0 pg Mean Corpuscular Hemoglobin Concent 35.0 32.0-36.0 g/dL Red Cell Distribution Width 13.7 11.8-14.3 % Platelet Count 290 140-450 10^3/uL Mean Platelet Volume 7.1 6.9-10.8 fL Neutrophils (%) (Auto) 58.2 37.0-80.0 % Lymphocytes (%) (Auto) 32.3 10.0-50.0 % Monocytes (%) (Auto) 8.7 0.0-12.0 % Eosinophils (%) (Auto) 0.3 0.0-7.0 % Basophils (%) (Auto) 0.5 0.0-2.0 % Neutrophils # (Auto) 3.1 1.6-8.6 10 ^3/uL Lymphocytes # (Auto) 1.7 0.4-5.4 10 ^3/uL Monocytes # (Auto) 0.5 0-1.3 10 ^3/uL Eosinophils # (Auto) 0 0-0.8 10 ^3/uL Basophils # (Auto) 0 0-0.2 10 ^3/uL Nucleated Red Blood Cells 0.2 % Prothrombin Time 12.1 H 9.3-11.8 sec Prothrombin Time INR 1.16 H 0.9-1.15 Activated Partial Thromboplast Time 30.8 24.5-34.5 SEC Urine Color Colorless Yellow Urine Clarity Clear Clear Urine pH 5.5 5.0-9.0 Urine Specific [place] 1.005 1.001-1.035 Urine Protein Negative Negative Urine Ketones Negative Negative Urine Blood Negative Negative /uL Urine Nitrite Negative Negative Urine Bilirubin Negative Negative Urine Urobilinogen Normal Negative mg/dL Urine Leukocyte Esterase Negative Negative /uL Urine RBC None seen 0 - 4 /hpf Urine Microscopic WBC 0-5 /HPF Urine Squamous Epithelial Cells Few <5 /hpf Urine Bacteria Few H None Seen /hpf Urine Glucose Normal Normal mg/dL Sodium Level 142 136-145 mmol/L Potassium Level 3.7 3.5-5.1 mmol/L Chloride Level 106 98-107 mmol/L Carbon Dioxide Level 28 20-31 mmol/L Anion Gap 8 5-15 Blood Urea Nitrogen 12 9-23 mg/dL Creatinine 0.96 0.550-1.02 mg/dL Glomerular Filtration Rate Calc 69 >90 mL/min BUN/Creatinine Ratio 12.5 10.0-20.0 Serum Glucose 97 74-106 mg/dL Calcium Level 10.2 8.7-10.4 mg/dL Total Bilirubin 1.1 H 0.2-1.0 mg/dL Aspartate Amino Transferase (AST) 22 13-40 U/L Alanine Aminotransferase (ALT) 20 7-40 U/L Alkaline Phosphatase 79 46-116 U/L Total Protein 6.8 5.7-8.2 g/dL Albumin 4.5 3.2-4.8 g/dL SEPSIS Sepsis Screen Physician Orders Page Hospitalist For Admission (12/09/24 12:51) To Pacu For Recovery (12/09/24 12:51) Oxygen Via Cool Mist Mask (12/09/24 12:51) Incentive Spirometry Q 1hr (12/09/24 12:51) Clear Liq Diet (12/09/24 Lunch) Advance Diet As Tolerated (12/09/24 12:51) Harpreet To Bulb Suction (12/09/24 12:51) Alvin Wrap: (12/09/24 12:51) D5w/Sod Chl 0.45%/Kcl 20meq (12/09/24 13:00) Levofloxacin 500mg (Levaquin 500mg/ 100m (12/10/24 10:00) Hydromorphone Injection (Dilaudid Inject (12/09/24 13:00) Acetaminophen/Codeine Tablet (Tylenol W/ (12/09/24 13:00) Admit (12/09/24 14:01) Nitroglycerin Sublingual (Ntrostat Subli (12/09/24 14:15) Morphine Sulfate Injection (12/09/24 14:15) Stat Ekg For Chest Pain (12/09/24 14:01) Notify Of Changes From Base (12/09/24 14:) Acls Nurse For 24 Hours (12/09/24 14:01) Emergency Dysrhythmia Protocol (12/09/24 14:01) Rhythm Strips Once Every Shift (12/09/24 14:01) Oxygen By Nasal Cannula (12/09/24 14:01) Acetaminophen Tablet (Tylenol Tablet) (12/09/24 14:15) Ondansetron Hcl (Zofran) (12/09/24 14:15) Buspirone Hcl Tablet (Buspar Tablet) (12/09/24 22:00) Pantoprazole Tablet (Protonix Tablet) (12/10/24 06:00) Losartan Tablet (Cozaar Tablet) (12/10/24 10:00) Hydralazine Injection (Apresoline Inject (12/09/24 14:15) Complete Blood Count (12/10/24 06:00) Comprehensive Metabolic Panel (12/10/24 06:00) Bipap/Cpap For Sleep Apnea (12/09/24 14:04) Vital Signs Date Time Temp Pulse Resp B/P (MAP) Pulse Ox O2 Delivery O2 Flow Rate FiO2 12/09/24 13:36 87 15 167/66 12/09/24 10:37 97.4 98 18 154/84 (107) 93 97.4 Medications Medications Dose Ordered Sig/Donnie Route Start Time Stop Time Status Last Admin Dose Admin Acetaminophen 100 ml @ ud STK-MED ONCE IV 12/09/24 13:30 12/09/24 13:28 DC 12/09/24 13:34 1,000 MLS/HR Hydromorphone HCl 1 mg Q3HPRN PRN IV 12/09/24 13:00 12/09/24 13:36 1 MG Potassium Chloride/Dextrose/ Sod Cl 1,000 ml @ 100 mls/hr Q10H IV 12/09/24 13:00 12/09/24 13:00 100 MLS/HR Assessment/Plan Assessment/Plan SEE DICTATED NOTE Plan discussed with: Patient My Orders Orders - HOLLAND WANG MD Procedure Category Date Status Time Admit ADMIT 12/09/24 Transmitted 14:01 Nitroglycerin PHA 12/09/24 Logged Sublingual (Ntrostat 14:15 Morphine Sulfate PHA 12/09/24 Logged Injection 14:15 Stat Ekg For Chest CHANO 12/09/24 In Process Pain 14:01 Notify Of Changes CHANO 12/09/24 In Process From Base 14:01 Acls Nurse For CHANO 12/09/24 In Process 24 Hours 14:01 Emergency Dysrhythmia CHANO 12/09/24 In Process Protocol 14:01 Rhythm Strips Once CHANO 12/09/24 In Process Every Shift 14:01 Oxygen By Nasal RT 12/09/24 Transmitted Cannula 14:01 Acetaminophen Tablet PHA 12/09/24 Logged (Tylenol Tablet) 14:15 Ondansetron Hcl PHA 12/09/24 Logged (Zofran) 14:15 Buspirone Hcl Tablet PHA 12/09/24 Logged (Buspar Tablet) 22:00 Pantoprazole Tablet PHA 12/10/24 Logged (Protonix Tablet) 06:00 Losartan Tablet PHA 12/10/24 Logged (Cozaar Tablet) 10:00 Hydralazine Injection PHA 12/09/24 Logged (Apresoline Inject 14:15 Complete Blood Count LAB 12/10/24 Verified 06:00 Comprehensive LAB 12/10/24 Verified Metabolic Panel 06:00 Bipap/Cpap For Sleep RT 12/09/24 Logged Apnea 14:04 Date of Service: Dec 09, 2024 Billing Provider: HOLLAND WANG MD Common Visit Codes: [id number] INP/OBS CARE (HIGH) Secondary Visit Codes: [id number] CARE PLAN 30 MINUTES HOLLAND WANG MD Dec 09, 2024 14:07
[2024-12-09] MEDS ORDERED: ACETAMINOPHEN 325 MG TAB PO PRN (14:15)
[2024-12-09] MEDS ORDERED: MORPHINE SULFATE INJ 2 MG/ml SYRG IV PRN (14:15)
[2024-12-09] MEDS ORDERED: ONDANSETRON HCL 4 MG/2 ML VIAL IV PRN (14:15)
[2024-12-09] MEDS ORDERED: hydrALAZINE HCL 20 MG/ML VL IV PRN (14:15)
[2024-12-09] MEDS ORDERED: ALBUTEROL SULF 2.5 MG/0.5ML(0.5%) NEB SOLN NEB PRN (14:15)
[2024-12-09] MEDS ORDERED: NITROGLYCERIN 0.4 MG SL TAB SL PRN (14:15)
[2024-12-10] MEDS: PANTOPRAZOLE 40 MG TAB PO SCH (06:00)
[2024-12-10 06:40] VITALS: O2SAT 95
[2024-12-10 09:47] VITALS: BP 165/75; PULSE 60; RESP 16; TEMP 97.7; O2SAT 95
[2024-12-10] MEDS: LOSARTAN POTASSIUM 50 MG TAB PO SCH (10:00)
[2024-12-10] MEDS: ACETAMINOPHEN/CODEINE#3 (300/30mg) TAB PO PRN (11:23)
--- NOTE | 2024-12-10 11:42 | DVHPN2 ---
Progress Note Date Seen: Dec 10, 2024 Medical Necessity Reason Pt with a Central, PICC or Fol: No Subjective Patient reports: No new complaints Review of Systems: HEENT:Normal, CVS:Normal, RESPIRATORY:Normal, GI:Normal, :Normal, MSK:Normal, NEURO:Normal Objective vital signs Vital Sign Date Time Temp Pulse Resp B/P (MAP) Pulse Ox O2 Delivery O2 Flow Rate FiO2 12/10/24 10:00 118/67 12/10/24 09:47 97.7 60 16 95 0.0 21 97.7 12/10/24 06:40 Room Air* Total Intake and Output 12/09/24 12/09/24 12/10/24 15:00 23:00 07:00 Intake Total 200 ml Output Total 20 ml Balance 200 ml -20 ml medications Current Medications Medications Dose Ordered Sig/Donnie Route Start Time Stop Time Status Last Admin Dose Admin Potassium Chloride/Dextrose/ Sod Cl 1,000 ml @ 100 mls/hr Q10H IV 12/09/24 13:00 12/10/24 10:59 100 MLS/HR Hydromorphone HCl 1 mg Q3HPRN PRN IV 12/09/24 13:00 12/09/24 13:36 1 MG Acetaminophen/ Codeine Phosphate 1 tab Q4HP PRN PO 12/09/24 13:00 12/10/24 11:23 1 TAB Nitroglycerin 0.4 mg Q5MINP PRN SL 12/09/24 14:15 Morphine Sulfate 2 mg Q30M PRN IV 12/09/24 14:15 Acetaminophen 650 mg Q6HP PRN PO 12/09/24 14:15 Ondansetron HCl 4 mg Q6HPRN PRN IV 12/09/24 14:15 Buspirone HCl 15 mg Q12HR PO 12/09/24 22:00 12/10/24 10:58 15 MG Pantoprazole Sodium 40 mg DAILY@0600 PO 12/10/24 06:00 Losartan Potassium 50 mg DAILY PO 12/10/24 10:00 Hydralazine HCl 10 mg Q6HP PRN IV 12/09/24 14:15 Cefazolin Sodium 50 ml @ 100 mls/hr Q8HR IV 12/09/24 22:00 Albuterol 2.5 mg Q6HPRN PRN NEB 12/09/24 14:15 Examination: GENERAL:Normal, HEENT:Normal, NECK:Normal, LUNGS:Normal, CVS:Normal, ABDOMEN:Normal, MSK:Normal, MSK:Abnormal (left chest dressing, drain), SKIN:Normal, NEURO:Normal, :Normal laboratory and microbiology Laboratory Tests 12/05/24 09:05 Test 12/05/24 09:05 Range/Units Serum Glucose 97 74-106 mg/dL Problem List/Assessment/Plan Problem List/Assessment/Plan * Hypertension, for which the patient will be placed on losartan and p.r.n. hydralazine. * Morbid obesity. * Anxiety. * Sleep apnea, for which she will continue on the CPAP machine at night. * Questionable COPD. * Status post mastectomy for left breast cancer, for which she will be placed on pain medication and IV fluids. Advanced care planning, the patient is a full code-Time spent was 18 minutes. Plan discussed with: Patient My Orders My Orders Orders - HOLLAND WANG MD Procedure Category Date Status Time Admit ADMIT 12/09/24 Transmitted 14:01 Nitroglycerin PHA 12/09/24 In Process Sublingual (Ntrostat 14:15 Morphine Sulfate PHA 12/09/24 In Process Injection 14:15 Stat Ekg For Chest [facility]ANO 12/09/24 In Process Pain 14:01 Notify Md Of Changes [facility] 12/09/24 In Process From Base 14:01 Vp Marketing For [facility] 12/09/24 In Process 24 Hours 14:01 Emergency Dysrhythmia [facility] 12/09/24 In Process Protocol 14:01 Rhythm Strips Once CHANO 12/09/24 In Process Every Shift 14:01 Oxygen By Nasal RT 12/09/24 Transmitted Cannula 14:01 Acetaminophen Tablet PHA 12/09/24 In Process (Tylenol Tablet) 14:15 Ondansetron Hcl PHA 12/09/24 In Process (Zofran) 14:15 Buspirone Hcl Tablet PHA 12/09/24 In Process (Buspar Tablet) 22:00 Pantoprazole Tablet PHA 12/10/24 In Process (Protonix Tablet) 06:00 Losartan Tablet PHA 12/10/24 In Process (Cozaar Tablet) 10:00 Hydralazine Injection PHA 12/09/24 In Process (Apresoline Inject 14:15 Bipap/Cpap For Sleep RT 12/09/24 Logged Apnea 14:04 Cefazolin 1gm/50ml PHA 12/09/24 In Process (Ancef) 22:00 Albuterol Medneb PHA 12/09/24 In Process (Ventolin Medneb) 14:15 Cardiac DIET 12/10/24 Transmitted Diet-2gna,Lofat,Lochol Lunch Discontinue Tele CHANO 12/10/24 In Process 11:30 Transfer Orders XFER 12/10/24 Transmitted 11:30 Date of Service: Dec 10, 2024 Billing Provider: HOLLAND WANG MD Common Visit Codes: [id number] INP/OBS CARE(HIGH) Secondary Visit Codes: [id number] CARE PLAN 30 MINUTES HOLLAND WANG MD Dec 10, 2024 11:41
--- NOTE | 2024-12-10 13:07 | DVHPN2 ---
Progress Note Date Seen: Dec 10, 2024 Medical Necessity Reason Pt with a Central, PICC or Fol: No Objective vital signs Vital Sign Date Time Temp Pulse Resp B/P (MAP) Pulse Ox O2 Delivery O2 Flow Rate FiO2 12/10/24 10:00 118/67 12/10/24 09:47 97.7 60 16 95 0.0 21 97.7 12/10/24 06:40 Room Air* Total Intake and Output 12/09/24 12/09/24 12/10/24 15:00 23:00 07:00 Intake Total 200 ml Output Total 20 ml Balance 200 ml -20 ml medications Current Medications Medications Dose Ordered Sig/Donnie Route Start Time Stop Time Status Last Admin Dose Admin Hydromorphone HCl 1 mg Q3HPRN PRN IV 12/09/24 13:00 12/09/24 13:36 1 MG Acetaminophen/ Codeine Phosphate 1 tab Q4HP PRN PO 12/09/24 13:00 12/10/24 11:23 1 TAB Nitroglycerin 0.4 mg Q5MINP PRN SL 12/09/24 14:15 Morphine Sulfate 2 mg Q30M PRN IV 12/09/24 14:15 Acetaminophen 650 mg Q6HP PRN PO 12/09/24 14:15 Ondansetron HCl 4 mg Q6HPRN PRN IV 12/09/24 14:15 Buspirone HCl 15 mg Q12HR PO 12/09/24 22:00 12/10/24 10:58 15 MG Pantoprazole Sodium 40 mg DAILY@0600 PO 12/10/24 06:00 Losartan Potassium 50 mg DAILY PO 12/10/24 10:00 Hydralazine HCl 10 mg Q6HP PRN IV 12/09/24 14:15 Cefazolin Sodium 50 ml @ 100 mls/hr Q8HR IV 12/09/24 22:00 Albuterol 2.5 mg Q6HPRN PRN NEB 12/09/24 14:15 laboratory and microbiology Laboratory Tests 12/05/24 09:05 Test 12/05/24 09:05 Range/Units Serum Glucose 97 74-106 mg/dL Problem List/Assessment/Plan Problem List/Assessment/Plan 12/10/24 doing well, dressing dry, serosanguineous drainage, she is cleared for discharge. Plan discussed with: Patient BLACK RUTLEDGE MD Dec 10, 2024 13:07
[2024-12-10] MEDS: ceFAZolin 1GM/50ML 50 ML IV SCH (13:40)
[2024-12-10] MEDS ORDERED: SUCCINYLCHOLINE 20mg/ml 100mg/5ml SYRINGE IV ONE (13:42)
[2024-12-10] MEDS ORDERED: PHENYLEPHRINE HCL 10 MG/ML VL IV ONE (13:44)
[2024-12-10 18:13] VITALS: O2SAT 93
[2024-12-10 21:00] VITALS: BP 100/69; PULSE 75; RESP 20; TEMP 98.3; O2SAT 97
[2024-12-10 21:40] VITALS: PULSE 61; O2SAT 96
[2024-12-11] VITALS (8 sets, daily range): BP systolic 108–146; BP diastolic 63–82; PULSE 55–64; RESP 16–20; TEMP 97.6–98; O2SAT 93–98
--- NOTE | 2024-12-11 11:17 | DVHDS2 ---
Discharge Summary Date of Admission Dec 09, 2024 at 13:56 Date of Discharge: Dec 11, 2024 Labs/Diagnostic Data: Laboratory Results Test 12/05/24 09:05 White Blood Count 5.4 10^3/uL (4.4-10.8) Red Blood Count 4.69 10^6/uL (4.0-5.20) Hemoglobin 14.5 g/dL (12.2-16.2) Hematocrit 41.4 % (36.0-46.0) Mean Corpuscular Volume 88.2 fL (80.0-100.0) Mean Corpuscular Hemoglobin 30.8 pg (28.0-32.0) Mean Corpuscular Hemoglobin Concent 35.0 g/dL (32.0-36.0) Red Cell Distribution Width 13.7 % (11.8-14.3) Platelet Count 290 10^3/uL (140-450) Mean Platelet Volume 7.1 fL (6.9-10.8) Neutrophils (%) (Auto) 58.2 % (37.0-80.0) Lymphocytes (%) (Auto) 32.3 % (10.0-50.0) Monocytes (%) (Auto) 8.7 % (0.0-12.0) Eosinophils (%) (Auto) 0.3 % (0.0-7.0) Basophils (%) (Auto) 0.5 % (0.0-2.0) Neutrophils # (Auto) 3.1 10 ^3/uL (1.6-8.6) Lymphocytes # (Auto) 1.7 10 ^3/uL (0.4-5.4) Monocytes # (Auto) 0.5 10 ^3/uL (0-1.3) Eosinophils # (Auto) 0 10 ^3/uL (0-0.8) Basophils # (Auto) 0 10 ^3/uL (0-0.2) Nucleated Red Blood Cells 0.2 % Prothrombin Time 12.1 sec (9.3-11.8) Prothrombin Time INR 1.16 (0.9-1.15) Activated Partial Thromboplast Time 30.8 SEC (24.5-34.5) Urine Color Colorless (Yellow) Urine Clarity Clear (Clear) Urine pH 5.5 (5.0-9.0) Urine Specific Conrad 1.005 (1.001-1.035) Urine Protein Negative (Negative) Urine Ketones Negative (Negative) Urine Blood Negative /uL (Negative) Urine Nitrite Negative (Negative) Urine Bilirubin Negative (Negative) Urine Urobilinogen Normal mg/dL (Negative) Urine Leukocyte Esterase Negative /uL (Negative) Urine RBC None seen /hpf (0 - 4) Urine Microscopic WBC /HPF (0-5) Urine Squamous Epithelial Cells Few /hpf (<5) Urine Bacteria Few /hpf (None Seen) Urine Glucose Normal mg/dL (Normal) Sodium Level 142 mmol/L (136-145) Potassium Level 3.7 mmol/L (3.5-5.1) Chloride Level 106 mmol/L (98-107) Carbon Dioxide Level 28 mmol/L (20-31) Anion Gap 8 (5-15) Blood Urea Nitrogen 12 mg/dL (9-23) Creatinine 0.96 mg/dL (0.550-1.02) Glomerular Filtration Rate Calc 69 mL/min (>90) BUN/Creatinine Ratio 12.5 (10.0-20.0) Serum Glucose 97 mg/dL (74-106) Calcium Level 10.2 mg/dL (8.7-10.4) Total Bilirubin 1.1 mg/dL (0.2-1.0) Aspartate Amino Transferase (AST) 22 U/L (13-40) Alanine Aminotransferase (ALT) 20 U/L (7-40) Alkaline Phosphatase 79 U/L (46-116) Total Protein 6.8 g/dL (5.7-8.2) Albumin 4.5 g/dL (3.2-4.8) Other Laboratory Tests 12/05/24 09:05 Brief Hx & Hospital Course: SEE DICTATED NOTE Condition at Discharge: Fair Final Diagnosis/Problems List LEFT BREAST CANCER Discharge Disposition: Home Discharge Instruct/Medications Diet: Cardiac 2g Na,low cholest Activity: No Restrictions, As Tolerated Follow Up/Referral: FU WITH DR RUTLEDGE IN 1 WK Medications: RESUME HOME MEDS SCRIPT TO PHARMACY Scheduled Albuterol Sulfate (Ventolin Mdi), 90 MCG IN PRN, (Reported) Buspirone Hcl (Buspirone Hcl), 15 MG PO TID, (Reported) Trvistlxxgr-Wyaprvirjgwf-Xnjrw (Trelegy Ellipta 200-62.5-25 Mcg/INH), 1 AER IN DAILY, (Reported) Losartan Potassium (Losartan Potassium), 50 MG PO DAILY, (Reported) Pantoprazole Sodium Sesquihydr (Protonix), 40 MG PO DAILY, (Reported) Scheduled PRN Cyclobenzaprine Hcl (Cyclobenzaprine Hcl), 10 MG PO BID PRN Miscellaneous Medications Hctz (Hydrochlorothiazide), 25 MG PO, (Reported) Hydroxyzine Hcl (Hydroxyzine Hcl), 50 MG PO, (Reported) Discharge Statement: "Patient was advised to return to the ER or call 911 if any headaches, dizziness, shortness of breath, chest pain, abdominal pain, bleeding, fevers, or worsening of medical condition. Patient was counseled about treatment plan, medications, possible side effects, patientverbalized understanding. All questions were answered to the best of my ability. This discharge took greater then 30 minutes in planning, reviewing documentation, counseling the patient, and discussing with other team members." ASSESSMENT ASSESSMENT Assessment LEFT BREAST CANCER Date of Service: Dec 11, 2024 Billing Provider: HOLLAND WANG MD Common Visit Codes: 21375-EBO/OBS DISCH DAY >30min HOLLAND WANG MD Dec 11, 2024 11:17
[2024-12-11] MEDS ORDERED: HYDR1TAB97 PO (11:18)
[2024-12-11] MEDS ORDERED: CEPH500C PO (11:18)
--- NOTE | 2024-12-11 11:34 | DVHDS ---
DATE OF DISCHARGE: 12/11/2024 HISTORY OF PRESENT ILLNESS: The patient is a 59-year-old lady who is admitted after she underwent partial mastectomy of the left breast for left breast cancer. The patient has previous history of sleep apnea, hypertension, and anxiety. HOSPITAL COURSE: The patient did well postoperatively. The patient has now been cleared for discharge by Dr. Whitfield. She has MYNOR drains in place. The patient will be discharged to resume her home medications as well as to be on [place] p.r.n. for pain and cephalexin 500 mg t.i.d. for 7 days. She will follow up with Dr. Whitfield in the next 1 week to 10 days. FINAL DIAGNOSES: * Hypertension. * Morbid obesity. * Anxiety. * Sleep apnea. * Questionable COPD. * Status post left partial mastectomy for left breast cancer. Time spent in discharge planning and review of plan with the patient, nursing, and method consultant was 38 minutes. MD DINORAH Anand/CELESTE TID: [id number] RECEIPT: [id number]
--- NOTE | 2024-12-12 07:32 | DVHHP ---
ADMIT DATE: 12/09/2024 HISTORY OF PRESENT ILLNESS: The patient is a 59-year-old lady who is admitted after she underwent partial mastectomy for left breast cancer. The patient at this time has minimal pain. No chest pain, no shortness of breath, no nausea or vomiting. REVIEW OF SYSTEMS: Review of rest of systems otherwise currently negative. PAST MEDICAL HISTORY: Significant for hypertension, sleep apnea, and anxiety. MEDICATIONS: Include BuSpar, losartan, Trelegy, Protonix, and hydroxyzine. ALLERGIES: TO CIPRO, PENICILLIN, AND SULFA. SOCIAL HISTORY: Denies smoking or alcohol. Lives with her brother. FAMILY HISTORY: Negative. PHYSICAL EXAMINATION: GENERAL: The patient is awake and alert. VITAL SIGNS: Temperature of 97.4, pulse 87 per minute, blood pressure 154/84. SHEENT: Unremarkable. NECK: There is no JVD. LUNGS: Equal bilaterally. No added sounds. CARDIOVASCULAR SYSTEM: S1 and S2 is regular without murmurs. ABDOMEN: Soft. There is no organomegaly. NEUROLOGIC: Nonfocal. MUSCULOSKELETAL: There is a dressing at the site of the left mastectomy. No pedal edema. ASSESSMENT AND PLAN: * Hypertension, for which the patient will be placed on losartan and p.r.n. hydralazine. * Morbid obesity. * Anxiety. * Sleep apnea, for which she will continue on the CPAP machine at night. * Questionable COPD. * Status post mastectomy for left breast cancer, for which she will be placed on pain medication and IV fluids. Advanced care planning, the patient is a full code-Time spent was 18 minutes. MD DINORAH Anand/LISA TID: [id number] RECEIPT: [id number] [facility] CENTERAbdirashid
== END 2024-12-11 15:05 | disposition home or self-care (01) | DRG 580 ==
LOC: SUR 06:37 → EDSTATUS 09:00 → WEST WING 13:56
PROVIDERS: ADMIT Internal Medicine; ATTEND Internal Medicine
PROC: 07B60ZX Excision of Left Axillary Lymphatic, Open Approach, Diagnostic (ICD-10-PCS; 2024-12-09)
PROC: 0HBU0ZZ Excision of Left Breast, Open Approach (ICD-10-PCS; principal; 2024-12-09 11:51)
PROC: 5A09357 Assistance with Respiratory Ventilation, Less than 24 Consecutive Hours, Continuous Positive Airway Pressure (ICD-10-PCS; 2024-12-10)
PROC: 5A09357 Assistance with Respiratory Ventilation, Less than 24 Consecutive Hours, Continuous Positive Airway Pressure (ICD-10-PCS; 2024-12-11)
DX: C50.912 Malignant neoplasm of unspecified site of left female breast (principal); Z68.44 Body mass index [BMI] 60.0-69.9, adult; I10 Essential (primary) hypertension; E66.01 Morbid (severe) obesity due to excess calories; G47.30 Sleep apnea, unspecified; F41.9 Anxiety disorder, unspecified; Z88.0 Allergy status to penicillin; Z88.1 Allergy status to other antibiotic agents; Z79.899 Other long term (current) drug therapy; J44.9 Chronic obstructive pulmonary disease, unspecified
CPT/HCPCS: 36415; 78195; 80053; 81001; 85025; 85610; 85730; 86850; 86900; 86901; 94660; G0378; J0131; J1100; J1956; J2250; J2405; J2704; J3490

== ENCOUNTER 2025-01-24 22:10 | Emergency (ER) | payer OTHER, MEDICAID ==
[~2025-01-24] VITALS: Ht 162.6 cm; Wt 158.3 kg
[~2025-01-24 22:10] MED LIST changes: +CEPH500C PO; +HYDR1TAB97 PO
[2025-01-24 22:12] VITALS: BP 157/111; PULSE 95; RESP 19; TEMP 98.5; O2SAT 98
--- NOTE | 2025-01-24 22:39 | ED.PDOC ---
General HPI Comments 59-year-old female who came to ER for pelvic pain. Patient is morbidly obese, has a history of hypertension, breast cancer, status post left mastectomy, currently on radiotherapy, 12/20/2024. Patient states few hours ago she started experiencing pelvic pain, progressively worsening, with dysuria, urinary frequency and urgency. Denies any fever or flank pains Chief Complaint: Pelvic Pain Time Seen by MD: 22:38 Primary Care Provider: wale Reviewed notes: Nurses Notes Allergies: Coded Allergies: Penicillins (Unverified Allergy, Severe, anaphylaxis, 04/25/23) Ciprofloxacin (Unverified Adverse Reaction, Intermediate, anxiety, 12/05/24) Sulfa Antibiotics (Unverified Adverse Reaction, Mild, anxiety, 04/25/23) Home Meds Active Scripts Phenazopyridine HCl (Phenazopyridine Hydrochlo 100 mg) 1 Tab Tab, 1 TAB PO BID PRN, #20 TAB Prov:MIKE COLINDRES MD 01/25/25 Cefdinir (Cefdinir) 300 Mg Cap, 1 CAP PO BID for 10 Days, #20 CAP Prov:MIKE COLINDRES MD 01/25/25 Hydrocodone-Acetaminophen (Hydrocodone/Acetaminophen 5-325 mg) 1 Tab Tab, 1 TAB PO TIDP PRN for 6 Days, #18 TAB Prov:HOLLAND WANG MD 12/11/24 Cephalexin Monohydrate (Cephalexin) 500 Mg Cap, 1 CAP PO TID for 7 Days, #21 CAP Prov:HOLLAND WANG MD 12/11/24 Cyclobenzaprine Hcl (Cyclobenzaprine Hcl) 10 Mg Tab, 10 MG PO BID PRN for 21 Days, #42 TAB 0 Refills Prov:[facility] 04/30/24 Reported Medications Pantoprazole Sodium Sesquihydr (Protonix) 40 Mg Tab, 40 MG PO DAILY, #30 TAB 10/28/24 Hydroxyzine Hcl (Hydroxyzine Hcl) 50 Mg Tab, 50 MG PO, TAB 10/28/24 Hctz (Hydrochlorothiazide) 25 Mg Tab, 25 MG PO, TAB 10/28/24 Jclprdzuvgu-Fokelkjbaogy-Fmfai (Trelegy Ellipta 200-62.5-25 Mcg/INH) 1 Aer Aer, 1 AER IN DAILY, AER 04/25/23 Albuterol Sulfate (VENTOLIN MDI) 90 Mcg Ih, 90 MCG IN PRN, INH 04/25/23 Buspirone Hcl (Buspirone Hcl) 15 Mg Tab, 15 MG PO TID, TAB 04/25/23 Losartan Potassium (Losartan Potassium) 50 Mg Tab, 50 MG PO DAILY, TAB 04/25/23 Information Source: Patient Mode of Arrival: Ambulatory Severity: Moderate Timing: Hours Duration: Since onset Onset: Spontaneous Symptoms: Dysuria, Frequency, Urgency History of: UTI Location: Suprapubic associated signs and symptoms: Abdominal Pain, Dysuria, Frequency, Urgency Past Medical History PAST MEDICAL HISTORY: Cancer (Breast cancer), UTI'S Past Medical History (Other): Radiotherapy Surgical History (Other): Left mastectomy November 2024 Family History Family History: Reviewed,noncontributory to illness Social History Smoker: Non-Smoker Alcohol: Denies ETOH Use Drugs: Denies Drug Use Lives In: Home Constitutional: denies: chills, diaphoresis, fatigue, fever, malaise, sweats, weakness, others EENTM: denies: blurred vision, double vision, ear bleeding, ear discharge, ear drainage, ear pain, ear ringing, eye pain, eye redness, hearing loss, mouth pain, mouth swelling, nasal discharge, nose bleeding, nose congestion, nose pain, photophobia, tearing, throat pain, throat swelling, voice changes, others Respiratory: denies: cough, hemoptysis, orthopnea, SOB at rest, shortness of breath, SOB with excertion, stridor, wheezing, others Cardiovascular: denies: chest pain, dizzy spells, diaphoresis, Dyspnea on exertion, edema, irregular heart beat, left arm pain, lightheadedness, pal pitations, PND, syncope, others Gastrointestinal: denies: abdomen distended, abdominal pain, blood streaked bowels, constipated, diarrhea, dysphagia, difficulty swallowing, hematemesis, melena, nausea, poor appetite, poor fluid intake, rectal bleeding, rectal pain, vomiting, others Genitourinary: reports: dysuria, frequency, pain (Pelvic), urgency; denies: abnormal vagina bleeding, burning, dyspareunia, flank pain, hematuria, incontinence, , vagina discharge, others Neurological: denies: dizziness, fainting, headache, left sided numbness, left sided weakness, numbness, paresthesia, pre-existing deficit, right sided numbness, right sided weakness, seizure, speech problems, tingling, tremors, weakness, others Musculoskeletal: denies: back pain, gout, joint pain, joint swelling, muscle pain, muscle stiffness, neck pain, others Integumetry: denies: bruises, change in color, change in hair/nails, dryness, laceration, lesions, lumps, rash, wounds, others Allergic/Immunocompromised: denies: Difficulty Healing, Frequent Infections, Hives, Itching, others Hematologic/Lymphatic: denies: anemia, blood clots, easy bleeding, easy bruising, swollen glands, others Endocrine: denies: excessive hunger, excessive sweating, excessive thirst, excessive urination, flushing, intolerance to cold, intolerance to heat, unexplained weight gain, unexplained weight loss, others Psychiatric: denies: anxiety, bipolar disorder, depression, hopeless, panic disorder, schizophrenia, sleepless, suicidal, others Physical Exam General Appearance: No Apparent Distress, Normal HEENT: Normal ENT Inspection, Pharynx Normal, TMs Normal Neck: Full Range of Motion, Non-Tender, Normal, Normal Inspection Respiratory: Chest Non-Tender, Lungs Clear, No Accessory Muscle Use, No Respiratory Distress, Normal Breath Sounds Cardiovascular: No Edema, No JVD, No Murmur, No Gallop, Normal Peripheral Pulses, Regular Rate/Rhythm Breast Exam: Deferred Gastrointestinal: No Organomegaly, Non Tender, No Pulsatile Mass, Normal Bowel Sounds, Soft Genitalia: Deferred Pelvic: Deferred Rectal: Deferred Extremities: No calf tenderness, Normal capillary refill, Normal inspection, Normal range of motion, Non-tender, No pedal edema Musculoskeletal : Apperance: Normal Neurologic: Alert, water project engineer II-XII nml as Tested, No Motor Deficits, Normal Affect, Normal Mood, No Sensory Deficits Cerebellar Function: Normal Reflexes: Normal Skin: Dry, Normal Color, Warm Lymphatic: No Adenopathy Was a procedure done? Was a procedure done?: No Differential Diagnosis Kidney stone (Female): Musculoskeletal pain, Pancreatitis, Pyelonephritis, Renal failure, Strain, Urinary obstruction, Urolithiasis Urinary Problem (Female): Post-op complication, Pyelonephritis, Urinary retention, Urolithiasis, UTI, Vaginitis X-Ray, Labs, Meds, VS Vital Signs Date Time Temp Pulse Resp B/P (MAP) Pulse Ox O2 Delivery O2 Flow Rate FiO2 01/24/25 22:12 98.5 95 19 157/111 98 98.5 Lab Test 01/24/25 22:49 01/24/25 22:39 Range/Units White Blood Count 10.4 4.4-10.8 10^3/uL Red Blood Count 4.91 4.0-5.20 10^6/uL Hemoglobin 14.8 12.2-16.2 g/dL Hematocrit 43.2 36.0-46.0 % Mean Corpuscular Volume 87.9 80.0-100.0 fL Mean Corpuscular Hemoglobin 30.2 28.0-32.0 pg Mean Corpuscular Hemoglobin Concent 34.4 32.0-36.0 g/dL Red Cell Distribution Width 14.1 11.8-14.3 % Platelet Count 350 140-450 10^3/uL Mean Platelet Volume 7.1 6.9-10.8 fL Neutrophils (%) (Auto) 73.4 37.0-80.0 % Lymphocytes (%) (Auto) 19.0 10.0-50.0 % Monocytes (%) (Auto) 6.6 0.0-12.0 % Eosinophils (%) (Auto) 0.3 0.0-7.0 % Basophils (%) (Auto) 0.7 0.0-2.0 % Neutrophils # (Auto) 7.7 1.6-8.6 10 ^3/uL Lymphocytes # (Auto) 2.0 0.4-5.4 10 ^3/uL Monocytes # (Auto) 0.7 0-1.3 10 ^3/uL Eosinophils # (Auto) 0 0-0.8 10 ^3/uL Basophils # (Auto) 0.1 0-0.2 10 ^3/uL Nucleated Red Blood Cells 0.0 % Sodium Level 144 136-145 mmol/L Potassium Level 4.0 3.5-5.1 mmol/L Chloride Level 106 98-107 mmol/L Carbon Dioxide Level 29 20-31 mmol/L Anion Gap 9 5-15 Blood Urea Nitrogen 18 9-23 mg/dL Creatinine 1.07 H 0.550-1.02 mg/dL Glomerular Filtration Rate Calc 60 >90 mL/min BUN/Creatinine Ratio 16.8 10.0-20.0 Serum Glucose 116 H 74-106 mg/dL Calcium Level 10.3 8.7-10.4 mg/dL Urine Color Colorless Yellow Urine Clarity Turbid H Clear Urine pH 5.5 5.0-9.0 Urine Specific [place] 1.008 1.001-1.035 Urine Protein 1+ H Negative Urine Ketones Negative Negative Urine Blood 3+ H Negative /uL Urine Nitrite Negative Negative Urine Bilirubin Negative Negative Urine Urobilinogen Normal Negative mg/dL Urine Leukocyte Esterase 3+ Negative /uL Urine RBC 151 0 - 4 /hpf Urine WBC Clumps Present None Seen /hpf Urine Microscopic WBC 392 H 0-5 /HPF Urine Squamous Epithelial Cells Few <5 /hpf Urine Bacteria Few H None Seen /hpf Urine Yeast (Budding) Occasional None Seen /hpf Urine Glucose Normal Normal mg/dL Current Medications Medications (Trade) Dose Ordered Sig/Donnie Route Start Time Stop Time Status Last Admin Phenazopyridine HCl (Pyridium Tablet) 200 mg ONCE ONCE PO 01/24/25 22:45 01/24/25 22:46 DC 01/24/25 23:12 Acetaminophen (Tylenol Tablet) 1,000 mg ONCE ONCE PO 01/24/25 22:45 01/24/25 22:46 DC 01/24/25 23:13 Trimethoprim/ Sulfamethoxazole (Bactrim Ds Tablet) 1 tab ONCE ONCE PO 01/24/25 22:45 01/24/25 22:46 DC 01/24/25 23:12 Time of 1ST Reevaluation: 22:34 Reevaluation 1ST: Unchanged Patient Education/Counseling: Diagnosis, Treatment Family Education/Counseling: No Family Present SEPSIS Sepsis Screen Date sepsis recognized/suspect: Jan 24, 2025 Time Sepsis recognized/suspect: 2216 Recent Procedure: Yes On Antibiotic Therapy: No Respiratory Rate >20: No Heart Rate >90: Yes Temp<36 C (96.8 F) or >38.3 C: No SBP <90 or MAP <65 mmHG: No New Acute Mental Status Change: No Is the patient on CPAP, BIPAP,: No Vital Signs Date Time Temp Pulse Resp B/P (MAP) Pulse Ox O2 Delivery O2 Flow Rate FiO2 01/24/25 22:12 98.5 95 19 157/111 98 98.5 Laboratory Tests Test 01/24/25 22:49 White Blood Count 10.4 10^3/uL (4.4-10.8) Medications Medications Dose Ordered Sig/Donnie Route Start Time Stop Time Status Last Admin Dose Admin Acetaminophen 1,000 mg ONCE ONCE PO 01/24/25 22:45 01/24/25 22:46 DC 01/24/25 23:13 Phenazopyridine HCl 200 mg ONCE ONCE PO 01/24/25 22:45 01/24/25 22:46 DC 01/24/25 23:12 Trimethoprim/ Sulfamethoxazole 1 tab ONCE ONCE PO 01/24/25 22:45 01/24/25 22:46 DC 01/24/25 23:12 Departure 1 Departure Time of Disposition: 00:30 Impression: Primary Impression: Dysuria Additional Impression: UTI (urinary tract infection) Disposition: HOME / SELF CARE / HOMELESS Condition: Stable e-Prescriptions Phenazopyridine HCl (Phenazopyridine Hydrochlo 100 mg) 1 Tab Tab 1 TAB PO BID PRN, #20 TAB Prov: MIKE COLINDRES MD 01/25/25 Cefdinir (Cefdinir) 300 Mg Cap 1 CAP PO BID for 10 Days, #20 CAP Prov: MIKE COLINDRES MD 01/25/25 Discharged With: Self Critical Care Note Critical Care Time?: No Stability Stability form required: No Heart Score Heart Score: Heart Score Response (Comments) Value History N/A 0 EKG N/A 0 Age N/A 0 Risk Factors N/A 0 Troponin N/A 0 Total 0 I personally scribed for MIKE COLINDRES MD ([email or web address]) on 01/24/25 at 22:39. Electronically submitted by Richie Woodward ([email or web address]). MIKE COLINDRES MD Jan 24, 2025 22:39
[2025-01-24 22:58] LABS: Hematocrit 43.2 % (36.0-46.0); Hemoglobin 14.8 g/dL (12.2-16.2); Mean Corpuscular Hemoglobin 30.2 pg (28.0-32.0); Mean Corpuscular Volume 87.9 fL (80.0-100.0); Nucleated Red Blood Cells % 0.0 %
[2025-01-24 23:01] LABS: Urine Budding Yeast OCCASIONAL /hpf (None Seen); Urine Protein, UAD 1+ (Negative); Urine WBC Clumps PRESENT /hpf (None Seen)
[2025-01-24 23:07] LABS: Chloride 106 mmol/L (98-107); Potassium 4.0 mmol/L (3.5-5.1); Sodium 144 mmol/L (136-145)
[2025-01-24 23:08] LABS: Anion Gap 9 (5-15); Calcium 10.3 mg/dL (8.7-10.4); Carbon Dioxide 29 mmol/L (20-31)
[2025-01-24] MEDS: PHENAZOPYRIDINE HCL 100 MG TAB PO ONE (23:12)
[2025-01-24] MEDS: SULFAMETHOX W/TRIMETH(800/160MG) DS TAB PO ONE (23:12)
[2025-01-24 23:13] LABS: BUN/Creatinine Ratio 16.8 (10.0-20.0); Blood Urea Nitrogen 18 mg/dL (9-23)
[2025-01-24] MEDS: ACETAMINOPHEN 325 MG TAB PO ONE (23:13)
[2025-01-24 23:19] LABS: Glucose 116 mg/dL (74-106)
[2025-01-25] MEDS ORDERED: PHEN1TAB38 PO
[2025-01-25] MEDS ORDERED: CEFD300C2 PO
== END 2025-01-25 00:18 | disposition home or self-care (01) ==
LOC: ER 22:10
DX: N39.0 Urinary tract infection, site not specified (principal); R30.0 Dysuria; Z79.899 Other long term (current) drug therapy; Z87.440 Personal history of urinary (tract) infections; Z85.3 Personal history of malignant neoplasm of breast; Z88.0 Allergy status to penicillin; Z88.1 Allergy status to other antibiotic agents; Z88.2 Allergy status to sulfonamides; Z90.12 Acquired absence of left breast and nipple; Z92.3 Personal history of irradiation
CPT/HCPCS: 36415; 80048; 81001; 82947; 85025

== ENCOUNTER 2025-03-30 19:49 | Emergency (ER) | payer MEDICAID, OTHER ==
[~2025-03-30] VITALS: Ht 162.6 cm; Wt 158.2 kg
[~2025-03-30 19:49] MED LIST changes: +CEFD300C2 PO; +PHEN1TAB38 PO
--- NOTE | 2025-03-30 20:24 | ED.PDOC ---
History of Present Illness HPI Comments 59 y/o morbidly obese F presents with c/c of anxiety. Significant history of anxiety and hypertension and sleeping pill use. Patient endorses on 2x day history of feeling anxious with associated generalized tremors and elevated blood pressure readings and is unable to go to sleep. She comments suspicion on current symptoms being due to low-dose Tirzepatide she was started on 2x weeks ago. Patient also reports 1x isolated episode of palpitations that resolved on its own, last week. Denies any further acute symptoms. Chief Complaint: Anxiety Time Seen by MD: 20:15 Primary Care Provider: wale Reviewed Notes: Nurses Notes, Medications, Allergies Allergies: Coded Allergies: Penicillins (Unverified Allergy, Severe, anaphylaxis, 04/25/23) Ciprofloxacin (Unverified Adverse Reaction, Intermediate, anxiety, 12/05/24) Sulfa Antibiotics (Unverified Adverse Reaction, Mild, anxiety, 04/25/23) Home Meds Active Scripts Phenazopyridine HCl (Phenazopyridine Hydrochlo 100 mg) 1 Tab Tab, 1 TAB PO BID PRN, #20 TAB Prov:MIKE COLINDRES MD 01/25/25 Cefdinir (Cefdinir) 300 Mg Cap, 1 CAP PO BID for 10 Days, #20 CAP Prov:MIKE COLINDRES MD 01/25/25 Hydrocodone-Acetaminophen (Hydrocodone/Acetaminophen 5-325 mg) 1 Tab Tab, 1 TAB PO TIDP PRN for 6 Days, #18 TAB Prov:HOLLAND WANG MD 12/11/24 Cephalexin Monohydrate (Cephalexin) 500 Mg Cap, 1 CAP PO TID for 7 Days, #21 CAP Prov:HOLLAND WANG MD 12/11/24 Cyclobenzaprine Hcl (Cyclobenzaprine Hcl) 10 Mg Tab, 10 MG PO BID PRN for 21 Days, #42 TAB 0 Refills Prov:BRET VIGIL [facility] 04/30/24 Reported Medications Pantoprazole Sodium Sesquihydr (Protonix) 40 Mg Tab, 40 MG PO DAILY, #30 TAB 10/28/24 Hydroxyzine Hcl (Hydroxyzine Hcl) 50 Mg Tab, 50 MG PO, TAB 10/28/24 Hctz (Hydrochlorothiazide) 25 Mg Tab, 25 MG PO, TAB 10/28/24 Verhrnmdofr-Ixgwmhqzslxr-Qgoqf (Trelegy Ellipta 200-62.5-25 Mcg/INH) 1 Aer Aer, 1 AER IN DAILY, AER 04/25/23 Albuterol Sulfate (VENTOLIN MDI) 90 Mcg Ih, 90 MCG IN PRN, INH 04/25/23 Buspirone Hcl (Buspirone Hcl) 15 Mg Tab, 15 MG PO TID, TAB 04/25/23 Losartan Potassium (Losartan Potassium) 50 Mg Tab, 50 MG PO DAILY, TAB 04/25/23 Information Source: Patient Mode of Arrival: Ambulatory Severity: Moderate Timing: Days Duration: Since onset Prehospital treatment: None Past Medical History PAST MEDICAL HISTORY: Anxiety, Cancer, HTN, UTI'S Family History Family History: Reviewed,noncontributory to illness Social History Smoker: Non-Smoker Alcohol: Denies ETOH Use Drugs: Denies Drug Use Lives In: Home All Other Systems: Reviewed and Negative (Comprehensive review of systems are negative unless stated in HPI) Physical Exam General Appearance: No Apparent Distress, Obese HEENT: Normal ENT Inspection, Pharynx Normal, TMs Normal Neck: Full Range of Motion, Non-Tender, Normal, Normal Inspection Respiratory: Chest Non-Tender, Lungs Clear, No Accessory Muscle Use, No Respiratory Distress, Normal Breath Sounds Cardiovascular: No Edema, No JVD, No Murmur, No Gallop, Normal Peripheral Pulses, Regular Rate/Rhythm Breast Exam: Deferred Gastrointestinal: No Organomegaly, Non Tender, No Pulsatile Mass, Normal Bowel Sounds, Soft Genitalia: Deferred Pelvic: Deferred Rectal: Deferred Extremities: No calf tenderness, Normal capillary refill, Normal inspection, Normal range of motion, Non-tender, No pedal edema Musculoskeletal : Apperance: Normal Neurologic: Alert, teletype or varitype keyboard operator II-XII nml as Tested, No Motor Deficits, Normal Mood, No Sensory Deficits, Other (Anxious affect ) Cerebellar Function: Normal Reflexes: Normal Skin: Dry, Normal Color, Warm Lymphatic: No Adenopathy Was a procedure done? Was a procedure done?: No Differential Dx Considerations may include: anxiety, adverse medication effect, inappropriate medication dosage, among others X-Ray, Labs, Meds, VS Vital Signs Date Time Temp Pulse Resp B/P (MAP) Pulse Ox O2 Delivery O2 Flow Rate FiO2 03/30/25 21:22 98.3 91 20 157/88 (111) 98 98.3 11/2/25 21:22 91 20 98 Room Air 03/30/25 19:57 98.1 91 22 132/106 95 98.1 Lab Test 03/30/25 20:25 Range/Units White Blood Count 8.8 4.4-10.8 10^3/uL Red Blood Count 4.79 4.0-5.20 10^6/uL Hemoglobin 14.7 12.2-16.2 g/dL Hematocrit 42.0 36.0-46.0 % Mean Corpuscular Volume 87.8 80.0-100.0 fL Mean Corpuscular Hemoglobin 30.6 28.0-32.0 pg Mean Corpuscular Hemoglobin Concent 34.9 32.0-36.0 g/dL Red Cell Distribution Width 14.8 H 11.8-14.3 % Platelet Count 324 140-450 10^3/uL Mean Platelet Volume 6.8 L 6.9-10.8 fL Neutrophils (%) (Auto) 79.1 37.0-80.0 % Lymphocytes (%) (Auto) 13.4 10.0-50.0 % Monocytes (%) (Auto) 6.9 0.0-12.0 % Eosinophils (%) (Auto) 0.2 0.0-7.0 % Basophils (%) (Auto) 0.4 0.0-2.0 % Neutrophils # (Auto) 6.9 1.6-8.6 10 ^3/uL Lymphocytes # (Auto) 1.2 0.4-5.4 10 ^3/uL Monocytes # (Auto) 0.6 0-1.3 10 ^3/uL Eosinophils # (Auto) 0 0-0.8 10 ^3/uL Basophils # (Auto) 0 0-0.2 10 ^3/uL Nucleated Red Blood Cells 0.1 % Sodium Level 142 136-145 mmol/L Potassium Level 3.6 3.5-5.1 mmol/L Chloride Level 103 98-107 mmol/L Carbon Dioxide Level 29 20-31 mmol/L Anion Gap 10 5-15 Blood Urea Nitrogen 13 9-23 mg/dL Creatinine 1.03 H 0.550-1.02 mg/dL Glomerular Filtration Rate Calc 63 >90 mL/min BUN/Creatinine Ratio 12.6 10.0-20.0 Serum Glucose 95 74-106 mg/dL Calcium Level 9.8 8.7-10.4 mg/dL Troponin I High Sensitivity 4 </=34 ng/L Current Medications Medications (Trade) Dose Ordered Sig/Donnie Route Start Time Stop Time Status Last Admin Lorazepam (Ativan Tablet) 1 mg ONCE ONCE PO 03/30/25 21:30 03/30/25 21:31 DC 03/30/25 21:39 Time of 1ST Reevaluation: 20:45 Reevaluation 1ST: Unchanged Patient Education/Counseling: Diagnosis, Treatment, Need For Follow Up Family Education/Counseling: No Family Present SEPSIS Sepsis Screen Date sepsis recognized/suspect: Mar 30, 2025 Time Sepsis recognized/suspect: 1958 Recent Procedure: No On Antibiotic Therapy: No Respiratory Rate >20: No Heart Rate >90: Yes Temp<36 C (96.8 F) or >38.3 C: No SBP <90 or MAP <65 mmHG: No New Acute Mental Status Change: No Is the patient on CPAP, BIPAP,: No Physician Orders Electrocardigram (03/30/25 20:15) Vital Signs Date Time Temp Pulse Resp B/P (MAP) Pulse Ox O2 Delivery O2 Flow Rate FiO2 03/30/25 21:22 98.3 91 20 157/88 (111) 98 98.3 03/30/25 21:22 91 20 98 Room Air 03/30/25 19:57 98.1 91 22 132/106 95 98.1 Laboratory Tests Test 03/30/25 20:25 White Blood Count 8.8 10^3/uL (4.4-10.8) Medications Medications Dose Ordered Sig/Donnie Route Start Time Stop Time Status Last Admin Dose Admin Lorazepam 1 mg ONCE ONCE PO 03/30/25 21:30 03/30/25 21:31 DC 03/30/25 21:39 Departure 1 Departure Time of Disposition: 22:00 Impression: Primary Impression: Adverse drug reaction Additional Impressions: Insomnia Hypertension Disposition: 01 HOME / SELF CARE / HOMELESS Condition: Stable Discharged With: Self Critical Care Note Critical Care Time?: No Stability Stability form required: No Heart Score Heart Score: Heart Score Response (Comments) Value History N/A 0 EKG N/A 0 Age N/A 0 Risk Factors N/A 0 Troponin N/A 0 Total 0 I personally scribed for MIKE COLINDRES MD ([email or web address]) on 03/30/25 at 20:24. Electronically submitted by Wali Car ([email or web address]). MIKE COLINDRES MD Mar 30, 2025 20:24
[2025-03-30 20:38] LABS: Hematocrit 42.0 % (36.0-46.0); Hemoglobin 14.7 g/dL (12.2-16.2); Mean Corpuscular Hemoglobin 30.6 pg (28.0-32.0); Mean Corpuscular Volume 87.8 fL (80.0-100.0); Nucleated Red Blood Cells % 0.1 %
[2025-03-30 20:46] LABS: Chloride 103 mmol/L (98-107); Potassium 3.6 mmol/L (3.5-5.1); Sodium 142 mmol/L (136-145)
[2025-03-30 20:47] LABS: Anion Gap 10 (5-15); Calcium 9.8 mg/dL (8.7-10.4); Carbon Dioxide 29 mmol/L (20-31)
[2025-03-30 20:52] LABS: Glucose 95 mg/dL (74-106)
[2025-03-30 21:22] VITALS: BP 157/88; PULSE 91; RESP 20; TEMP 98.3; O2SAT 98
[2025-03-30 21:30] LABS: BUN/Creatinine Ratio 12.6 (10.0-20.0); Blood Urea Nitrogen 13 mg/dL (9-23)
[2025-03-30] MEDS: LORazepam 0.5 MG TAB PO ONE (21:39)
== END 2025-03-30 21:41 | disposition home or self-care (01) ==
LOC: ER 19:49
DX: F41.9 Anxiety disorder, unspecified (principal); T50.905A Adverse effect of unspecified drugs, medicaments and biological substances, initial encounter; I10 Essential (primary) hypertension; G47.00 Insomnia, unspecified; Y92.89 Other specified places as the place of occurrence of the external cause; Z79.899 Other long term (current) drug therapy; Z88.0 Allergy status to penicillin; Z88.1 Allergy status to other antibiotic agents; Z88.2 Allergy status to sulfonamides
CPT/HCPCS: 36415; 80048; 84484; 85025

== ENCOUNTER 2025-04-15 16:42 | Emergency (ER) | payer OTHER, MEDICAID ==
[~2025-04-15] VITALS: Ht 162.6 cm; Wt 157.3 kg
--- NOTE | 2025-04-15 17:20 | ED.PDOC ---
GI ASSESSMENT HPI Comments 59 y/o F, with PMHx of anxiety, gastritis presents to the ED for CC of mid upper/left upper abdominal pain. Patient reports taking medications for her stomach already for many years. State that she just started taking Prozac within the past week. Started to get recurrent pain along the left upper quadrant over the past few days, however, reports that it is different from her gastritis pain. Also stating that she is having small, yellow stool. Patient further, relays d/t increased anxiety to have been unable to sleep or eat. Patient denies nausea, vomiting, diarrhea, or fever. No other symptoms or modifying factors are present at this time. Chief Complaint: Abdominal Pain Time Seen by MD: 17:15 Primary Care Provider: wale Reviewed Notes: Nurses Notes, Medications, Allergies Allergies: Coded Allergies: Penicillins (Unverified Allergy, Severe, anaphylaxis, 04/25/23) Ondansetron (Verified Allergy, Unknown, ANXIETY, 04/15/25) Ciprofloxacin (Unverified Adverse Reaction, Intermediate, anxiety, 12/05/24) Sulfa Antibiotics (Unverified Adverse Reaction, Mild, anxiety, 04/25/23) Home Meds Active Scripts Phenazopyridine HCl (Phenazopyridine Hydrochlo 100 mg) 1 Tab Tab, 1 TAB PO BID PRN, #20 TAB Prov:MIKE COLINDRES MD 01/25/25 Cefdinir (Cefdinir) 300 Mg Cap, 1 CAP PO BID for 10 Days, #20 CAP Prov:MIKE COLINDRES MD 01/25/25 Hydrocodone-Acetaminophen (Hydrocodone/Acetaminophen 5-325 mg) 1 Tab Tab, 1 TAB PO TIDP PRN for 6 Days, #18 TAB Prov:HOLLAND WANG MD 12/11/24 Cephalexin Monohydrate (Cephalexin) 500 Mg Cap, 1 CAP PO TID for 7 Days, #21 CAP Prov:HOLLAND WANG MD 12/11/24 Cyclobenzaprine Hcl (Cyclobenzaprine Hcl) 10 Mg Tab, 10 MG PO BID PRN for 21 Days, #42 TAB 0 Refills Prov:BRET VIGIL [facility] 04/30/24 Reported Medications Pantoprazole Sodium Sesquihydr (Protonix) 40 Mg Tab, 40 MG PO DAILY, #30 TAB 10/28/24 Hydroxyzine Hcl (Hydroxyzine Hcl) 50 Mg Tab, 50 MG PO, TAB 10/28/24 Hctz (Hydrochlorothiazide) 25 Mg Tab, 25 MG PO, TAB 10/28/24 Gcsowjechqd-Lrbblrtqukrl-Wzrpu (Trelegy Ellipta 200-62.5-25 Mcg/INH) 1 Aer Aer, 1 AER IN DAILY, AER 04/25/23 Albuterol Sulfate (VENTOLIN MDI) 90 Mcg Ih, 90 MCG IN PRN, INH 04/25/23 Buspirone Hcl (Buspirone Hcl) 15 Mg Tab, 15 MG PO TID, TAB 04/25/23 Losartan Potassium (Losartan Potassium) 50 Mg Tab, 50 MG PO DAILY, TAB 04/25/23 Information Source: Patient Mode of Arrival: Ambulatory Timing: Days Duration: Since onset Prehospital treatment: None Vomitus: None Stool: Yellow Severity: Moderate Recent: None Recent Hx of: None Pain Location: LUQ Modifying Factors: Nothing Associated sign and symptoms: Abdominal Pain Past Medical History PAST MEDICAL HISTORY: Anxiety, Cancer, HTN, UTI'S Family History Family History: Reviewed,noncontributory to illness Social History Smoker: Non-Smoker Alcohol: Denies ETOH Use Drugs: Denies Drug Use Lives In: Home Constitutional: denies: chills, diaphoresis, fatigue, fever, malaise, sweats, weakness, others EENTM: denies: blurred vision, double vision, ear bleeding, ear discharge, ear drainage, ear pain, ear ringing, eye pain, eye redness, hearing loss, mouth pain, mouth swelling, nasal discharge, nose bleeding, nose congestion, nose pain, photophobia, tearing, throat pain, throat swelling, voice changes, others Respiratory: denies: cough, hemoptysis, orthopnea, SOB at rest, shortness of breath, SOB with excertion, stridor, wheezing, others Cardiovascular: denies: chest pain, dizzy spells, diaphoresis, Dyspnea on exertion, edema, irregular heart beat, left arm pain, lightheadedness, palpitations, PND, syncope, others Gastrointestinal: reports: abdominal pain, nausea, poor appetite; denies: abdomen distended, blood streaked bowels, constipated, diarrhea, dysphagia, difficulty swallowing, hematemesis, melena, poor fluid intake, rectal bleeding, rectal pain, vomiting, others Genitourinary: denies: abnormal vagina bleeding, burning, dyspareunia, dysuria, flank pain, frequency, hematuria, incontinence, pain, , vagina discharge, urgency, others Neurological: denies: dizziness, fainting, headache, left sided numbness, left sided weakness, numbness, paresthesia, pre-existing deficit, right sided numbness, right sided weakness, seizure, speech problems, tingling, tremors, weakness, others Musculoskeletal: denies: back pain, gout, joint pain, joint swelling, muscle pain, muscle stiffness, neck pain, others Integumetry: denies: bruises, change in color, change in hair/nails, dryness, laceration, lesions, lumps, rash, wounds, others Allergic/Immunocompromised: denies: Difficulty Healing, Frequent Infections, Hives, Itching, others Hematologic/Lymphatic: denies: anemia, blood clots, easy bleeding, easy bruising, swollen glands, others Endocrine: denies: excessive hunger, excessive sweating, excessive thirst, excessive urination, flushing, intolerance to cold, intolerance to heat, unexplained weight gain, unexplained weight loss, others Psychiatric: denies: anxiety, bipolar disorder, depression, hopeless, panic disorder, schizophrenia, sleepless, suicidal, others All Other Systems: Reviewed and Negative Physical Exam General Appearance: No Apparent Distress, Normal, Other (extremely anxious) HEENT: Normal ENT Inspection, Pharynx Normal Neck: Full Range of Motion, Non-Tender, Normal, Normal Inspection Respiratory: Chest Non-Tender, Lungs Clear, No Accessory Muscle Use, No Respiratory Distress, Normal Breath Sounds Cardiovascular: No Edema, No Murmur, No Gallop, Normal Peripheral Pulses, Regular Rate/Rhythm Breast Exam: Deferred Gastrointestinal: LUQ (TTP), No Organomegaly, No Pulsatile Mass, Normal Bowel Sounds, Soft Genitalia: Deferred Pelvic: Deferred Rectal: Deferred Extremities: No calf tenderness, Normal capillary refill, Normal inspection, Normal range of motion, Non-tender, No pedal edema Musculoskeletal : Apperance: Normal Neurologic: Alert, staging technician II-XII nml as Tested, No Motor Deficits, Normal Affect, Normal Mood, No Sensory Deficits Cerebellar Function: Normal Reflexes: Normal Skin: Dry, Normal Color, Warm Lymphatic: No Adenopathy Was a procedure done? Was a procedure done?: No GI differential Dx Differential Diagnosis: Bowel Obstruction, Constipation, Diverticular disease, Gastritis/PUD, Gastroenteritis, Bacterial, Viral X-Ray, Labs, Meds, VS Vital Signs Date Time Temp Pulse Resp B/P (MAP) Pulse Ox O2 Delivery O2 Flow Rate FiO2 04/15/25 21:48 98.0 85 16 136/85 (102) 96 98.0 04/15/25 16:50 99.8 87 18 152/89 100 99.8 Lab Test 04/15/25 17:41 04/15/25 17:14 Range/Units Urine Color Light-yellow Yellow Urine Clarity Clear Clear Urine pH 6.5 5.0-9.0 Urine Specific [place] 1.009 1.001-1.035 Urine Protein Negative Negative Urine Ketones Negative Negative Urine Blood Negative Negative /uL Urine Nitrite Negative Negative Urine Bilirubin Negative Negative Urine Urobilinogen Normal Negative mg/dL Urine Leukocyte Esterase Negative Negative /uL Urine RBC 1 0 - 4 /hpf Urine Microscopic WBC 1 0-5 /HPF Urine Squamous Epithelial Cells Few <5 /hpf Urine Bacteria None seen None Seen /hpf Urine Glucose Normal Normal mg/dL White Blood Count 4.7 4.4-10.8 10^3/uL Red Blood Count 4.76 4.0-5.20 10^6/uL Hemoglobin 14.3 12.2-16.2 g/dL Hematocrit 41.7 36.0-46.0 % Mean Corpuscular Volume 87.6 80.0-100.0 fL Mean Corpuscular Hemoglobin 30.0 28.0-32.0 pg Mean Corpuscular Hemoglobin Concent 34.3 32.0-36.0 g/dL Red Cell Distribution Width 14.4 H 11.8-14.3 % Platelet Count 321 140-450 10^3/uL Mean Platelet Volume 6.8 L 6.9-10.8 fL Neutrophils (%) (Auto) 61.9 37.0-80.0 % Lymphocytes (%) (Auto) 27.6 10.0-50.0 % Monocytes (%) (Auto) 9.1 0.0-12.0 % Eosinophils (%) (Auto) 0.3 0.0-7.0 % Basophils (%) (Auto) 1.1 0.0-2.0 % Neutrophils # (Auto) 2.9 1.6-8.6 10 ^3/uL Lymphocytes # (Auto) 1.3 0.4-5.4 10 ^3/uL Monocytes # (Auto) 0.4 0-1.3 10 ^3/uL Eosinophils # (Auto) 0 0-0.8 10 ^3/uL Basophils # (Auto) 0 0-0.2 10 ^3/uL Nucleated Red Blood Cells 0.0 % Sodium Level 141 136-145 mmol/L Potassium Level 3.4 L 3.5-5.1 mmol/L Chloride Level 103 98-107 mmol/L Carbon Dioxide Level 28 20-31 mmol/L Anion Gap 10 5-15 Blood Urea Nitrogen 11 9-23 mg/dL Creatinine 0.92 0.550-1.02 mg/dL Glomerular Filtration Rate Calc 72 >90 mL/min BUN/Creatinine Ratio 12.0 10.0-20.0 Serum Glucose 84 74-106 mg/dL Calcium Level 9.4 8.7-10.4 mg/dL Total Bilirubin 1.7 H 0.2-1.0 mg/dL Aspartate Amino Transferase (AST) 25 13-40 U/L Alanine Aminotransferase (ALT) 29 7-40 U/L Alkaline Phosphatase 82 46-116 U/L Total Protein 7.2 5.7-8.2 g/dL Albumin 4.4 3.2-4.8 g/dL Lipase 35 12-53 U/L Current Medications Medications (Trade) Dose Ordered Sig/Donnie Route Start Time Stop Time Status Last Admin Acetaminophen (Tylenol Tablet Or Capsule) 1,000 mg ONCE ONCE PO 04/15/25 17:30 04/15/25 17:31 DC 04/15/25 21:46 Famotidine (Pepcid Tablet) 20 mg ONCE ONCE PO 04/15/25 17:30 04/15/25 17:31 DC 04/15/25 21:46 Metoclopramide HCl (Reglan Tablet) 10 mg ONCE ONCE PO 04/15/25 17:30 04/15/25 17:31 DC 04/15/25 21:46 Al Hydrox/Mg Hydrox/Simethicone (Maalox Plus) 30 ml ONCE ONCE PO 04/15/25 17:30 04/15/25 17:31 DC 04/15/25 21:45 Lidocaine HCl (Xylocaine 2% Viscous) 10 ml ONCE ONCE PO 04/15/25 17:30 04/15/25 17:31 DC 04/15/25 21:44 Time of 1ST Reevaluation: 17:45 Reevaluation 1ST: Unchanged Patient Education/Counseling: Diagnosis, Treatment Family Education/Counseling: No Family Present SEPSIS Sepsis Screen Date sepsis recognized/suspect: Apr 15, 2025 Time Sepsis recognized/suspect: 1652 Recent Procedure: No On Antibiotic Therapy: No Respiratory Rate >20: No Heart Rate >90: No Temp<36 C (96.8 F) or >38.3 C: No SBP <90 or MAP <65 mmHG: No New Acute Mental Status Change: No Is the patient on CPAP, BIPAP,: No Physician Orders Ct Ab Pel With Iv Con Only (04/15/25 17:13) Abdomen Limited (04/15/25 18:59) Vital Signs Date Time Temp Pulse Resp B/P (MAP) Pulse Ox O2 Delivery O2 Flow Rate FiO2 04/15/25 21:48 98.0 85 16 136/85 (102) 96 98.0 04/15/25 16:50 99.8 87 18 152/89 100 99.8 Laboratory Tests Test 04/15/25 17:14 White Blood Count 4.7 10^3/uL (4.4-10.8) Medications Medications Dose Ordered Sig/Donnie Route Start Time Stop Time Status Last Admin Dose Admin Acetaminophen 1,000 mg ONCE ONCE PO 04/15/25 17:30 04/15/25 17:31 DC 04/15/25 21:46 Al Hydrox/Mg Hydrox/Simethicone 30 ml ONCE ONCE PO 04/15/25 17:30 04/15/25 17:31 DC 04/15/25 21:45 Famotidine 20 mg ONCE ONCE PO 04/15/25 17:30 04/15/25 17:31 DC 04/15/25 21:46 Lidocaine HCl 10 ml ONCE ONCE PO 04/15/25 17:30 04/15/25 17:31 DC 04/15/25 21:44 Metoclopramide HCl 10 mg ONCE ONCE PO 04/15/25 17:30 04/15/25 17:31 DC 04/15/25 21:46 Departure 1 Departure Time of Disposition: 21:40 (59 y/o F, with PMHx of anxiety, gastritis presents to the ED for CC of mid upper/left upper abdominal pain. She initially denied any prior abdominal surgery and given mid abdominal discomfort I performed an ultrasound which showed surgically absent gallbladder, no other evidence of ac vikci intra-abdominal process. Given the mid abdominal discomfort consider possible pancreatitis, lipase within normal limits, does not seem concerning for acute pancreatitis. Patient reporting left upper quadrant comfort, likely related to known gastritis, reflux. However, stating that it feels different to prior gastritis discomfort. Given that she has had a prior abdominal surgery consider possible SBO. CT of the abdomen and pelvis was performed which shows no evidence of any acute intra-abdominal process. CBC with no evidence of critical leukocytosis or significant anemia. Metabolic panel with no evidence of acute kidney insufficiency or acute electrolyte abnormalities. Liver function tests only showed mildly elevated bilirubin, however, remainder of LFTs are within normal limits. Patient was given oral Tylenol, Pepcid, Maalox, viscous lidocaine and oral Reglan. Feeling improved after interventions. Today's presentation was likely related to her gastritis. She is stable for discharge further outpatient symptomatic management.) Impression: Primary Impression: Left upper quadrant abdominal pain Additional Impressions: Nausea Poor appetite Gastritis Disposition: 01 HOME / SELF CARE / HOMELESS Condition: Stable Additional Instructions: Your CT scan was within normal limits. Your labs were within normal limits. Your urinalysis showed no signs to suggest UTI. Your discomfort was likely related to gastritis. Please continue to take your medications as prescribed for your gastritis. Discharged With: Self Critical Care Note Critical Care Time?: No Stability Stability form required: No Heart Score Heart Score: Heart Score Response (Comments) Value History N/A 0 EKG N/A 0 Age N/A 0 Risk Factors N/A 0 Troponin N/A 0 Total 0 I personally scribed for OSNI SPIVEY MD ([email or web address]) on 04/15/25 at 17:20. Electronically submitted by Bebe Whiting ([email or web address]). SONI SPIVEY MD Apr 15, 2025 17:20
[2025-04-15 17:35] LABS: Hematocrit 41.7 % (36.0-46.0); Hemoglobin 14.3 g/dL (12.2-16.2); Mean Corpuscular Hemoglobin 30.0 pg (28.0-32.0); Mean Corpuscular Volume 87.6 fL (80.0-100.0); Nucleated Red Blood Cells % 0.0 %
[2025-04-15 17:55] LABS: Alanine Aminotransferase 29 U/L (7-40); Albumin 4.4 g/dL (3.2-4.8); Alkaline Phosphatase 82 U/L (46-116); Anion Gap 10 (5-15); BUN/Creatinine Ratio 12.0 (10.0-20.0); Blood Urea Nitrogen 11 mg/dL (9-23); Calcium 9.4 mg/dL (8.7-10.4); Carbon Dioxide 28 mmol/L (20-31); Chloride 103 mmol/L (98-107); Glucose 84 mg/dL (74-106); Lipase 35 U/L (12-53); Sodium 141 mmol/L (136-145); Total Protein 7.2 g/dL (5.7-8.2)
[2025-04-15 18:43] LABS: Bilirubin, Total 1.7 mg/dL (0.2-1.0); Potassium 3.4 mmol/L (3.5-5.1)
[2025-04-15 18:45] LABS: Urine Protein, UAD Negative (Negative)
--- NOTE | 2025-04-15 20:58 | DVH ---
INDICATION: elevated bili, mid abdominal pain TECHNIQUE: Multiple real-time sonographic images of the abdomen were obtained. COMPARISON: None FINDINGS: Hepatic parenchyma is homogeneous but echogenic suggesting steatosis. The liver measures 19.4 cm. No intrahepatic biliary ductal dilatation is noted. Gallbladder is been surgically removed.. The common duct measures 0.51 cm and is unremarkable. No pericholecystic fluid is noted. Negative sonographic morales's sign. The right kidney measures 10.7 cm. Mild hydronephrosis. The left kidney measures 8.9 cm. Mild hydronephrosis. The pancreas is not well visualized due to obscuration from bowel gas. The visualized portions of the IVC and aorta are grossly unremarkable. IMPRESSION: 1. Gallbladder has been surgically removed. 2. Hepatomegaly with the liver measuring 19.4 cm with parenchymal changes consistent with steatosis. 3. Right and left hydronephrosis.
[2025-04-15] MEDS: IOHEXOL 300 MG/ML 100ML BOTTLE IJ ONE (21:08)
--- NOTE | 2025-04-15 21:27 | DVH ---
EXAM: CT CT AB PEL WITH IV CON ONLY HISTORY: left upper abdominal pain TECHNIQUE: Volumetric multidetector CT images of the abdomen and pelvis were obtained after the administration of intravenous contrast. All CT scans at this facility use dose modulation, iterative reconstruction, and/or weight based dosing when appropriate to reduce radiation dose to as low as reasonably achievable. COMPARISON: None FINDINGS: [LOWER CHEST]: Peribronchovascular atelectasis in the right lung base [LIVER]: Normal hepatic size without suspicious focal lesion. [GALLBLADDER AND BILIARY TREE]: Surgically absent. [SPLEEN]: Unremarkable. [PANCREAS]: Unremarkable. [ADRENAL GLANDS]: Unremarkable [KIDNEYS]: No hydronephrosis. No nephroureterolithiasis. No suspicious focal lesion. [BLADDER]: Unremarkable for the degree distention. [REPRODUCTIVE ORGANS]: Unremarkable. [BOWEL/MESENTERY]: Stomach is normal. No CT evidence of bowel obstruction. normal appendix. Mild scattered descending and sigmoid colonic diverticulosis. No CT evidence of acute diverticulitis. [ASCITES]: Absent [LYMPHADENOPATHY]: No pathologically enlarged lymph nodes by CT size criteria [VASCULATURE]: No aneurysmal dilatation. [ABDOMINAL WALL]: Unremarkable. [MUSCULOSKELETAL]: No acute fracture or aggressive focal osseous lesion. IMPRESSION: 1. No CT evidence of an acute abdominal/pelvic process. Stomach is decompressed limiting evaluation. 2. No definitive CT evidence of pancreatitis. 3. No hydroureteronephrosis. 4. Scattered diverticula
[2025-04-15] MEDS: LIDOCAINE VISCOUS 2% 15ML UD PO ONE (21:44)
[2025-04-15] MEDS: MAALOX PLUS or MAALOX 30 ML PO ONE (21:45)
[2025-04-15] MEDS: FAMOTIDINE 20 MG TAB PO ONE (21:46)
[2025-04-15] MEDS: METOCLOPRAMIDE HCL 10 MG TAB PO ONE (21:46)
[2025-04-15] MEDS: ACETAMINOPHEN 500 MG TAB or CAP PO ONE (21:46)
[2025-04-15 21:48] VITALS: BP 136/85; PULSE 85; RESP 16; TEMP 98; O2SAT 96
== END 2025-04-15 22:04 | disposition home or self-care (01) ==
LOC: ER 16:42
DX: K29.70 Gastritis, unspecified, without bleeding (principal); R10.12 Left upper quadrant pain; R11.0 Nausea; R63.0 Anorexia; F41.9 Anxiety disorder, unspecified; I10 Essential (primary) hypertension; Z88.0 Allergy status to penicillin; Z88.1 Allergy status to other antibiotic agents; Z88.2 Allergy status to sulfonamides; Z79.899 Other long term (current) drug therapy
CPT/HCPCS: 36415; 74177; 76705; 80053; 81001; 83690; 85025; 99285; J8597; Q9967

== ENCOUNTER 2025-04-23 09:48 | Emergency (ER) | payer OTHER, MEDICAID ==
[~2025-04-23] VITALS: Ht 162.6 cm; Wt 154.9 kg
--- NOTE | 2025-04-23 10:03 | ECG ---
[facility] Test Date: 2025-04-23 Test Time: 10:02:40 Pat Name: ALONZO LYNN Department: [facility] ED Patient ID: [id number] Room: Gender: F Wig Comber: rodrigo : 1965 Requested By: GIANNA FREY Order Number: [id number] Reading MD: Ramon Sauceda Measurements Intervals [place] Rate: 92 P: 74 IN: 175 QRS: -41 QRSD: 92 T: 39 QT: 367 QTc: 455 Interpretive Statements Sinus rhythm Left axis deviation Low voltage, precordial leads Borderline T wave abnormalities Electronically Signed On 04-23-2025 17:51:15 PST by Ramon Sauceda Please click the below link to view image of tracing.
[2025-04-23 10:26] LABS: Hematocrit 41.7 % (36.0-46.0); Hemoglobin 14.4 g/dL (12.2-16.2); Mean Corpuscular Hemoglobin 30.2 pg (28.0-32.0); Mean Corpuscular Volume 87.7 fL (80.0-100.0); Nucleated Red Blood Cells % 0.0 %
[2025-04-23 10:33] LABS: Anion Gap 12 (5-15); Carbon Dioxide 25 mmol/L (20-31); Chloride 104 mmol/L (98-107); Sodium 141 mmol/L (136-145)
[2025-04-23 10:34] LABS: Calcium 9.5 mg/dL (8.7-10.4)
[2025-04-23 10:37] LABS: Potassium 3.1 mmol/L (3.5-5.1)
[2025-04-23 10:39] LABS: BUN/Creatinine Ratio 10.4 (10.0-20.0); Blood Urea Nitrogen 10 mg/dL (9-23); Glucose 97 mg/dL (74-106)
--- NOTE | 2025-04-23 10:41 | ED.PDOC ---
HPI Comments This is a 59 year old female presenting to the ED with chief complaint of arm pain and elevated BP. Patient reports that she has been experiencing bilateral, upper extremity burning pain for the past month with associated elevated and uncontrollable blood pressure. Patient relays that she is currently on HCTZ and Losartan with no relief noted. Patient denies any chest pain, SOB, dizziness, headache, or N/V. Chief Complaint: Upper Extremity Time Seen by MD: 10:40 Primary Care Provider: wale Dangelo Notes: Nurses Notes, Medications, Allergies Allergies: Coded Allergies: Penicillins (Unverified Allergy, Severe, anaphylaxis, 04/25/23) Ondansetron (Verified Allergy, Unknown, ANXIETY, 04/15/25) Ciprofloxacin (Unverified Adverse Reaction, Intermediate, anxiety, 12/05/24) Sulfa Antibiotics (Unverified Adverse Reaction, Mild, anxiety, 04/25/23) Home Meds Active Scripts Phenazopyridine HCl (Phenazopyridine Hydrochlo 100 mg) 1 Tab Tab, 1 TAB PO BID PRN, #20 TAB Prov:MIKE COLINDRES MD 01/25/25 Cefdinir (Cefdinir) 300 Mg Cap, 1 CAP PO BID for 10 Days, #20 CAP Prov:MIKE COLINDRES MD 01/25/25 Hydrocodone-Acetaminophen (Hydrocodone/Acetaminophen 5-325 mg) 1 Tab Tab, 1 TAB PO TIDP PRN for 6 Days, #18 TAB Prov:HOLLAND WANG MD 12/11/24 Cephalexin Monohydrate (Cephalexin) 500 Mg Cap, 1 CAP PO TID for 7 Days, #21 CAP Prov:HOLLAND WANG MD 12/11/24 Cyclobenzaprine Hcl (Cyclobenzaprine Hcl) 10 Mg Tab, 10 MG PO BID PRN for 21 Days, #42 TAB 0 Refills Prov:[facility] 04/30/24 Reported Medications Pantoprazole Sodium Sesquihydr (Protonix) 40 Mg Tab, 40 MG PO DAILY, #30 TAB 10/28/24 Hydroxyzine Hcl (Hydroxyzine Hcl) 50 Mg Tab, 50 MG PO, TAB 10/28/24 Hctz (Hydrochlorothiazide) 25 Mg Tab, 25 MG PO, TAB 10/28/24 Zxpjecjvrmn-Opskjggcyfrn-Oytmf (Trelegy Ellipta 200-62.5-25 Mcg/INH) 1 Aer Aer, 1 AER IN DAILY, AER 04/25/23 Albuterol Sulfate (VENTOLIN MDI) 90 Mcg Ih, 90 MCG IN PRN, INH 04/25/23 Buspirone Hcl (Buspirone Hcl) 15 Mg Tab, 15 MG PO TID, TAB 04/25/23 Losartan Potassium (Losartan Potassium) 50 Mg Tab, 50 MG PO DAILY, TAB 04/25/23 Information Source: Patient Mode of Arrival: Ambulatory Severity: Moderate Timing: Months Duration: Since onset Prehospital treatment: None Past Medical History PAST MEDICAL HISTORY: Anxiety, Cancer, HTN, UTI'S Surgical History: Denies all surgeries [employer] History: Denies all [employer] Hx Family History Family History: Reviewed,noncontributory to illness Social History Smoker: Non-Smoker Alcohol: Denies ETOH Use Drugs: Denies Drug Use Lives In: Home Constitutional: denies: chills, diaphoresis, fatigue, fever, malaise, sweats, weakness, others EENTM: denies: blurred vision, double vision, ear bleeding, ear discharge, ear drainage, ear pain, ear ringing, eye pain, eye redness, hearing loss, mouth pain, mouth swelling, nasal discharge, nose bleeding, nose congestion, nose pain, photophobia, tearing, throat pain, throat swelling, voice changes, others Respiratory: denies: cough, hemoptysis, orthopnea, SOB at rest, shortness of breath, SOB with excertion, stridor, wheezing, others Cardiovascular: denies: chest pain, dizzy spells, diaphoresis, Dyspnea on exertion, edema, irregular heart beat, left arm pain, lightheadedness, palpitations, PND, syncope, others Gastrointestinal: denies: abdomen distended, abdominal pain, blood streaked bowels, constipated, diarrhea, dysphagia, difficulty swallowing, hematemesis, melena, nausea, poor appetite, poor fluid intake, rectal bleeding, rectal pain, vomiting, others Genitourinary: denies: abnormal vagina bleeding, burning, dyspareunia, dysuria, flank pain, frequency, hematuria, incontinence, pain, , vagina discharge, urgency, others Neurological: denies: dizziness, fainting, headache, left sided numbness, left sided weakness, numbness, paresthesia, pre-existing deficit, right sided numbness, right sided weakness, seizure, speech problems, tingling, tremors, weakness, others Musculoskeletal: reports: others (Bilat arm pain); denies: back pain, gout, joint pain, joint swelling, muscle pain, muscle stiffness, neck pain Integumetry: denies: bruises, change in color, change in hair/nails, dryness, laceration, lesions, lumps, rash, wounds, others Allergic/Immunocompromised: denies: Difficulty Healing, Frequent Infections, Hives, Itching, others Hematologic/Lymphatic: denies: anemia, blood clots, easy bleeding, easy bruising, swollen glands, others Endocrine: denies: excessive hunger, excessive sweating, excessive thirst, excessive urination, flushing, intolerance to cold, intolerance to heat, unexplained weight gain, unexplained weight loss, others Psychiatric: denies: anxiety, bipolar disorder, depression, hopeless, panic disorder, schizophrenia, sleepless, suicidal, others All Other Systems: Reviewed and Negative Physical Exam General Appearance: Moderate Distress, Obese HEENT: Normal ENT Inspection, Pharynx Normal, TMs Normal Neck: Full Range of Motion, Non-Tender, Normal, Normal Inspection Respiratory: Chest Non-Tender, Lungs Clear, No Accessory Muscle Use, No Respiratory Distress, Normal Breath Sounds Cardiovascular: No Edema, No JVD, No Murmur, No Gallop, Normal Peripheral Pulses, Regular Rate/Rhythm Breast Exam: Deferred Gastrointestinal: No Organomegaly, Non Tender, No Pulsatile Mass, Normal Bowel Sounds, Soft Genitalia: Deferred Pelvic: Deferred Rectal: Deferred Extremities: No calf tenderness, Normal capillary refill, Normal inspection, Normal range of motion, Non-tender, No pedal edema Musculoskeletal : Apperance: Normal Neurologic: Alert, pairing machine operator II-XII nml as Tested, No Motor Deficits, Normal Affect, Normal Mood, No Sensory Deficits Cerebellar Function: Normal Reflexes: Normal Skin: Dry, Normal Color, Warm Peripheral Pulses: 3+ Radial (R), 3+ Radial (L) Lymphatic: No Adenopathy Was a procedure done? Was a procedure done?: No CP Differential Dx Differential Diagnosis: A-fib, A-Flutter, Angina, Anxiety / Panic Attack, Atrial Dysrhythmia, Electrolyte Disorder X-Ray, Labs, Meds, VS Vital Signs Date Time Temp Pulse Resp B/P (MAP) Pulse Ox O2 Delivery O2 Flow Rate FiO2 04/23/25 12:59 98.1 76 17 133/86 (102) 97 98.1 04/23/25 10:35 98.5 94 16 154/85 (108) 95 98.5 04/23/25 10:35 94 16 95 Room Air 04/23/25 10:02 92 04/23/25 09:54 98.4 102 16 170/100 96 98.4 Lab Test 04/23/25 10:05 Range/Units White Blood Count 4.8 4.4-10.8 10^3/uL Red Blood Count 4.76 4.0-5.20 10^6/uL Hemoglobin 14.4 12.2-16.2 g/dL Hematocrit 41.7 36.0-46.0 % Mean Corpuscular Volume 87.7 80.0-100.0 fL Mean Corpuscular Hemoglobin 30.2 28.0-32.0 pg Mean Corpuscular Hemoglobin Concent 34.5 32.0-36.0 g/dL Red Cell Distribution Width 14.5 H 11.8-14.3 % Platelet Count 321 140-450 10^3/uL Mean Platelet Volume 6.9 6.9-10.8 fL Neutrophils (%) (Auto) 66.8 37.0-80.0 % Lymphocytes (%) (Auto) 22.0 10.0-50.0 % Monocytes (%) (Auto) 9.9 0.0-12.0 % Eosinophils (%) (Auto) 0.4 0.0-7.0 % Basophils (%) (Auto) 0.9 0.0-2.0 % Neutrophils # (Auto) 3.2 1.6-8.6 10 ^3/uL Lymphocytes # (Auto) 1.1 0.4-5.4 10 ^3/uL Monocytes # (Auto) 0.5 0-1.3 10 ^3/uL Eosinophils # (Auto) 0 0-0.8 10 ^3/uL Basophils # (Auto) 0 0-0.2 10 ^3/uL Nucleated Red Blood Cells 0.0 % Sodium Level 141 136-145 mmol/L Potassium Level 3.1 L 3.5-5.1 mmol/L Chloride Level 104 98-107 mmol/L Carbon Dioxide Level 25 20-31 mmol/L Anion Gap 12 5-15 Blood Urea Nitrogen 10 9-23 mg/dL Creatinine 0.96 0.550-1.02 mg/dL Glomerular Filtration Rate Calc 69 >90 mL/min BUN/Creatinine Ratio 10.4 10.0-20.0 Serum Glucose 97 74-106 mg/dL Calcium Level 9.5 8.7-10.4 mg/dL Troponin I High Sensitivity 7 </=34 ng/L Current Medications Medications (Trade) Dose Ordered Sig/Donnie Route Start Time Stop Time Status Last Admin Potassium Bicarbonate (Klor-Con/Ef) 50 meq ONCE ONCE PO 04/23/25 12:45 04/23/25 12:46 DC 04/23/25 12:57 Patient alert. Came in because of her blood pressure. She does take blood pressure medication. Vitals stable. Answering questions. Potassium slightly low. Was given potassium. WBC within normal limits. Hemoglobin within normal limits. Abdomen is soft nontender. Neurological exam pristine. Cardiac marker within normal limits. EKG reviewed does not show any acute changes. Explained to the patient. Was told to follow up with her primary care physician. Was told to come back if there is any problem. Time of 1ST Reevaluation: 11:39 Reevaluation 1ST: Unchanged Patient Education/Counseling: Diagnosis, Treatment Family Education/Counseling: No Family Present SEPSIS Sepsis Screen Date sepsis recognized/suspect: Apr 23, 2025 Time Sepsis recognized/suspect: 955 Recent Procedure: No On Antibiotic Therapy: No Respiratory Rate >20: No Heart Rate >90: Yes Temp<36 C (96.8 F) or >38.3 C: No SBP <90 or MAP <65 mmHG: No New Acute Mental Status Change: No Is the patient on CPAP, BIPAP,: No Physician Orders Chest Xray 1 View (04/23/25 09:57) Vital Signs Date Time Temp Pulse Resp B/P (MAP) Pulse Ox O2 Delivery O2 Flow Rate FiO2 04/23/25 12:59 98.1 76 17 133/86 (102) 97 98.1 04/23/25 10:35 98.5 94 16 154/85 (108) 95 98.5 04/23/25 10:35 94 16 95 Room Air 04/23/25 10:02 92 04/23/25 09:54 98.4 102 16 170/100 96 98.4 Laboratory Tests Test 04/23/25 10:05 White Blood Count 4.8 10^3/uL (4.4-10.8) Medications Medications Dose Ordered Sig/Donnie Route Start Time Stop Time Status Last Admin Dose Admin Potassium Bicarbonate 50 meq ONCE ONCE PO 04/23/25 12:45 04/23/25 12:46 DC 04/23/25 12:57 Departure 1 Departure Time of Disposition: 12:40 Impression: Primary Impression: Hypokalemia Additional Impression: Hypertensive urgency Disposition: 01 HOME / SELF CARE / HOMELESS Condition: Good Discharged With: Self Critical Care Note Critical Care Time?: No Stability Stability form required: No Heart Score Heart Score: Heart Score Response (Comments) Value History Highly Suspicious 2 EKG Normal 0 Age 45-64 1 Risk Factors 1 or 2 risk factors 1 Troponin Normal limit 0 Total 4 I personally scribed for GIANNA FREY MD ([email or web address]) on 04/23/25 at 10:41. Electronically submitted by Anand Anderson ([email or web address]). GIANNA FREY MD Apr 23, 2025 10:41
--- NOTE | 2025-04-23 11:16 | DVH ---
CHEST RADIOGRAPH Indication: HTN Technique: XY CHEST XRAY 1 VIEW COMPARISON: None FINDINGS: The cardiac silhouette is enlarged. The lungs demonstrate bilateral patchy airspace opacities, [id number]. The pulmonary vasculature is prominent. Small bilateral pleural effusions. Aortic atherosclerotic disease. There is no pneumothorax. IMPRESSION: As above
[2025-04-23] MEDS: POTASSIUM EFFERVESENT TAB 25 MEQ PO ONE (12:57)
[2025-04-23 12:59] VITALS: BP 133/86; PULSE 76; RESP 17; TEMP 98.1; O2SAT 97
== END 2025-04-23 13:19 | disposition home or self-care (01) ==
LOC: ER 09:48
DX: I16.0 Hypertensive urgency (principal); E87.6 Hypokalemia; I10 Essential (primary) hypertension; F41.9 Anxiety disorder, unspecified; Z79.899 Other long term (current) drug therapy; Z87.440 Personal history of urinary (tract) infections; Z88.0 Allergy status to penicillin; Z88.1 Allergy status to other antibiotic agents; Z88.2 Allergy status to sulfonamides
CPT/HCPCS: 36415; 71045; 80048; 84484; 85025; 93005

== ENCOUNTER 2025-05-17 09:15 | Emergency (ER) | payer OTHER, MEDICAID ==
[~2025-05-17] VITALS: Ht 162.6 cm; Wt 155.7 kg
--- NOTE | 2025-05-17 10:05 | ED.PDOC ---
Psychiatric HPI Comments This is a 59 year old female presenting to the ED with chief complaint of anxiety. Patient reports that she has been experiencing increased anxiety and blood pressure over the past month, worsening over the past few days. Patient relays that she has taken her Prozac and HTN medication today with no relief. Patient states that she was previously on Olanzapine, but was recently taken off of it by her PCP for an unknown reason. Patient denies any chest pain, SOB, dizziness, headache, SI, or HI. Chief Complaint: High Blood Pressure Time Seen by MD: 10:00 Primary Care Provider: wale Dangelo Notes: Nurses Notes, Medications, Allergies Information Source: Patient Mode of Arrival: Ambulatory Severity: Able to Care for Self, Able to Control Self Severity of Pain: None Severity of Mental Status: Moderate Severity of Symptoms: Moderate Timing: Days Duration: Since onset Prehospital treatment: None Presents with: Anxiety Stressors: None History of: Anxiety Associated signs and symptoms: Anxiety Past Medical History PAST MEDICAL HISTORY: Anxiety, Cancer, HTN, UTI'S Surgical History: Denies all surgeries HEALTH MANAGER History: Denies all HEALTH MANAGER Hx Family History Family History: Reviewed,noncontributory to illness Social History Smoker: Non-Smoker Alcohol: Denies ETOH Use Drugs: Denies Drug Use Lives In: Home Constitutional: denies: chills, diaphoresis, fatigue, fever, malaise, sweats, weakness, others EENTM: denies: blurred vision, double vision, ear bleeding, ear discharge, ear drainage, ear pain, ear ringing, eye pain, eye redness, hearing loss, mouth pain, mouth swelling, nasal discharge, nose bleeding, nose congestion, nose pain, photophobia, tearing, throat pain, throat swelling, voice changes, others Respiratory: denies: cough, hemoptysis, orthopnea, SOB at rest, shortness of breath, SOB with excertion, stridor, wheezing, others Cardiovascular: denies: chest pain, dizzy spells, diaphoresis, Dyspnea on exertion, edema, irregular heart beat, left arm pain, lightheadedness, palpitations, PND, syncope, others Gastrointestinal: denies: abdomen distended, abdominal pain, blood streaked bowels, constipated, diarrhea, dysphagia, difficulty swallowing, hematemesis, melena, nausea, poor appetite, poor fluid intake, rectal bleeding, rectal pain, vomiting, others Genitourinary: denies: abnormal vagina bleeding, burning, dyspareunia, dysuria, flank pain, frequency, hematuria, incontinence, pain, , vagina discharge, urgency, others Neurological: denies: dizziness, fainting, headache, left sided numbness, left sided weakness, numbness, paresthesia, pre-existing deficit, right sided numbness, right sided weakness, seizure, speech problems, tingling, tremors, weakness, others Musculoskeletal: denies: back pain, gout, joint pain, joint swelling, muscle pain, muscle stiffness, neck pain, others Integumetry: denies: bruises, change in color, change in hair/nails, dryness, laceration, lesions, lumps, rash, wounds, others Allergic/Immunocompromised: denies: Difficulty Healing, Frequent Infections, Hives, Itching, others Hematologic/Lymphatic: denies: anemia, blood clots, easy bleeding, easy bruising, swollen glands, others Endocrine: denies: excessive hunger, excessive sweating, excessive thirst, excessive urination, flushing, intolerance to cold, intolerance to heat, unexplained weight gain, unexplained weight loss, others Psychiatric: reports: anxiety; denies: bipolar disorder, depression, hopeless, panic disorder, schizophrenia, sleepless, suicidal, others All Other Systems: Reviewed and Negative Physical Exam General Appearance: Mild Distress, Normal, Other (Anxious appearing) HEENT: Normal ENT Inspection, Pharynx Normal, TMs Normal Neck: Full Range of Motion, Non-Tender, Normal, Normal Inspection Respiratory: Chest Non-Tender, Lungs Clear, No Accessory Muscle Use, No Respiratory Distress, Normal Breath Sounds Cardiovascular: No Edema, No JVD, No Murmur, No Gallop, Normal Peripheral Pulses, Regular Rate/Rhythm Breast Exam: Deferred Gastrointestinal: No Organomegaly, Non Tender, No Pulsatile Mass, Normal Bowel Sounds, Soft Genitalia: Deferred Pelvic: Deferred Rectal: Deferred Extremities: No calf tenderness, Normal capillary refill, Normal inspection, Normal range of motion, Non-tender, No pedal edema Musculoskeletal : Apperance: Normal Neurologic: Alert, market development manager II-XII nml as Tested, No Motor Deficits, Normal Affect, Normal Mood, No Sensory Deficits Cerebellar Function: Normal Reflexes: Normal Skin: Dry, Normal Color, Warm Lymphatic: No Adenopathy Was a procedure done? Was a procedure done?: No Psych Differential Dx Psych. Differential Dx: Anxiety X-Ray, Labs, Meds, VS Vital Signs Date Time Temp Pulse Resp B/P (MAP) Pulse Ox O2 Delivery O2 Flow Rate FiO2 05/17/25 11:41 98.5 72 17 149/104 (119) 93 98.5 05/17/25 11:41 72 17 93 Room Air 05/17/25 09:17 98.4 103 20 161/105 95 98.4 Lab Test 05/17/25 12:50 05/17/25 11:01 05/17/25 10:03 Range/Units Troponin I High Sensitivity Pending 7 7 </=34 ng/L White Blood Count 4.8 4.4-10.8 10^3/uL Red Blood Count 4.72 4.0-5.20 10^6/uL Hemoglobin 14.5 12.2-16.2 g/dL Hematocrit 41.9 36.0-46.0 % Mean Corpuscular Volume 88.7 80.0-100.0 fL Mean Corpuscular Hemoglobin 30.6 28.0-32.0 pg Mean Corpuscular Hemoglobin Concent 34.5 32.0-36.0 g/dL Red Cell Distribution Width 15.0 H 11.8-14.3 % Platelet Count 319 140-450 10^3/uL Mean Platelet Volume 6.8 L 6.9-10.8 fL Neutrophils (%) (Auto) 75.9 37.0-80.0 % Lymphocytes (%) (Auto) 16.1 10.0-50.0 % Monocytes (%) (Auto) 7.2 0.0-12.0 % Eosinophils (%) (Auto) 0.2 0.0-7.0 % Basophils (%) (Auto) 0.6 0.0-2.0 % Neutrophils # (Auto) 3.6 1.6-8.6 10 ^3/uL Lymphocytes # (Auto) 0.8 0.4-5.4 10 ^3/uL Monocytes # (Auto) 0.3 0-1.3 10 ^3/uL Eosinophils # (Auto) 0 0-0.8 10 ^3/uL Basophils # (Auto) 0 0-0.2 10 ^3/uL Nucleated Red Blood Cells 0.1 % Sodium Level 145 136-145 mmol/L Potassium Level 4.1 3.5-5.1 mmol/L Chloride Level 106 98-107 mmol/L Carbon Dioxide Level 29 20-31 mmol/L Anion Gap 10 5-15 Blood Urea Nitrogen 10 9-23 mg/dL Creatinine 1.02 0.550-1.02 mg/dL Glomerular Filtration Rate Calc 64 >90 mL/min BUN/Creatinine Ratio 9.8 L 10.0-20.0 Serum Glucose 113 H 74-106 mg/dL Calcium Level 10.4 8.7-10.4 mg/dL Current Medications Medications (Trade) Dose Ordered Sig/Donnie Route Start Time Stop Time Status Last Admin Lorazepam (Ativan Tablet) 2 mg ONCE ONCE PO 05/17/25 10:00 05/17/25 10:01 DC 05/17/25 11:41 Time of 1ST Reevaluation: 10:57 Reevaluation 1ST: Unchanged Patient Education/Counseling: Diagnosis, Treatment Family Education/Counseling: No Family Present Departure 1 Departure Time of Disposition: 13:00 (Patient presented with hypertension and symptoms concerning for hypertensive emergency. Patient is receiving iv blood pressure medications requiring intensive monitoring. Data: 1. I ordered and reviewed the result of at least 3 labs including a CBC, BMP, and Urinalysis. 2. I independently interpreted the following tests: Chest x-ray: Which appears benign. EKG which is Normal Sinus RhythmRisk:This patient has a high risk of morbidity due to further diagnostic testing or treatment and may suffer from an acute cardiac disorder. Workup reveals hypertensive emergency and patient should be admitted for further workup. and possible expert consultation. ) Impression: Primary Impression: Hypertensive urgency Additional Impression: Anxiety reaction Disposition: ADMITTED INPATIENT Admit to: Tele Condition: Guarded Critical Care Note Critical Care Time?: Yes Critical care comment: Hypertensive urgency Authorized and Performed by: Deloris Croft MD Total critical care time: Approximately 38 minutes Due to a high probability of clinically significant, life threatening deterioration, the patient required my highest level of preparedness to intervene emergently and I personally spent this critical care time directly and personally managing the patient. This critical care time included obtaining a history; examining the patient; pulse oximetry; ordering and review of studies; arranging urgent treatment with development of a management plan; evaluation of patient's response to treatment; frequent reassessment; and, discussions with other providers. This critical care time was performed to assess and manage the high probability of imminent, life-threatening deterioration that could result in multi-organ failure. It was exclusive of separately billable procedures and treating other patients and teaching time. Please see my other sections and the rest of the note for further information on patient assessment and treatment. Stability Stability form required: No Heart Score Heart Score: Heart Score Response (Comments) Value History N/A 0 EKG N/A 0 Age N/A 0 Risk Factors N/A 0 Troponin N/A 0 Total 0 I personally scribed for DELORIS CROFT MD ([email or web address]) on 05/17/25 at 10:05. Electronically submitted by Anand Anderson ([email or web address]). DELORIS CROFT MD May 17, 2025 10:05
[2025-05-17 10:14] LABS: Hematocrit 41.9 % (36.0-46.0); Hemoglobin 14.5 g/dL (12.2-16.2); Mean Corpuscular Hemoglobin 30.6 pg (28.0-32.0); Mean Corpuscular Volume 88.7 fL (80.0-100.0); Nucleated Red Blood Cells % 0.1 %
[2025-05-17 10:19] LABS: Chloride 106 mmol/L (98-107); Potassium 4.1 mmol/L (3.5-5.1)
[2025-05-17 10:20] LABS: Anion Gap 10 (5-15); Carbon Dioxide 29 mmol/L (20-31)
[2025-05-17 10:25] LABS: BUN/Creatinine Ratio 9.8 (10.0-20.0); Blood Urea Nitrogen 10 mg/dL (9-23)
--- NOTE | 2025-05-17 10:32 | DVH ---
CHEST RADIOGRAPH INDICATION: cp TECHNIQUE: XY CHEST PORTABLE COMPARISON: None FINDINGS: The cardiac silhouette is enlarged. The lungs demonstrate bilateral patchy airspace opacities, more pronounced in the right lower lobe. The pulmonary vasculature is prominent. Small bilateral pleural effusions, [id number]-left. Aortic atherosclerotic disease. There is no pneumothorax. IMPRESSION: Cardiomegaly with pulmonary vascular congestion and bilateral patchy airspace opacities. Small bilateral pleural effusions.
[2025-05-17 10:35] LABS: Calcium 10.4 mg/dL (8.7-10.4); Glucose 113 mg/dL (74-106); Sodium 145 mmol/L (136-145)
[2025-05-17] MEDS: LORazepam 0.5 MG TAB PO ONE (11:41)
[2025-05-17 13:20] VITALS: BP 158/93; PULSE 7; RESP 16; TEMP 98.2
[2025-05-17] MEDS ORDERED: HYDR50TA32 PO (14:39)
--- NOTE | 2025-05-17 14:39 | ED.PDOC ---
Departure 1 Departure Time of Disposition: 14:38 (Patient reports that now she is feeling better. And we would like to go home. She requests something for sleep. We will discharge patient home with hydroxyzine) Impression: Primary Impression: Anxiety reaction Disposition: HOME / SELF CARE / HOMELESS Condition: Stable e-Prescriptions Hydroxyzine HCl (Hydroxyzine Hydrochloride) 50 Mg Tab 50 MG PO QHSP PRN for 7 Days, #7 TAB Prov: DELORIS CROFT MD 05/17/25 DELORIS CROFT MD May 17, 2025 14:39
[2025-05-17] MEDS: hydrALAZINE HCL 20 MG/ML VL IV ONE (15:03)
[2025-05-17 15:18] VITALS: O2SAT 97
== END 2025-05-17 15:06 | disposition home or self-care (01) ==
LOC: ER 09:15
DX: F41.1 Generalized anxiety disorder (principal); I16.0 Hypertensive urgency; I10 Essential (primary) hypertension; Z87.440 Personal history of urinary (tract) infections
CPT/HCPCS: 36415; 71045; 80048; 84484; 85025